=== PATIENT | female | born 1950 | race African-American/Black ===

== ENCOUNTER 2020-10-28 17:48 | Outpatient (REF) | payer MEDICARE, SELFPAY | END 2020-10-28 17:49 | disposition home or self-care (01) | LOC: HO.LAB 17:48 | PROVIDERS: PCP Nurse Practitioner Family; Visit Provider Internal Medicine | DX: Z20.822 Contact with and (suspected) exposure to COVID-19 (principal) | CPT/HCPCS: 36415; C9803; U0003 ==

== ENCOUNTER 2020-11-13 15:11 | Outpatient (REF) | payer MEDICARE, SELFPAY | END 2020-11-13 15:12 | disposition home or self-care (01) | LOC: HO.LAB 15:11 | PROVIDERS: Visit Provider Internal Medicine | DX: Z20.822 Contact with and (suspected) exposure to COVID-19 (principal) | CPT/HCPCS: 36415; C9803; U0003; U0005 ==

== ENCOUNTER 2021-01-29 10:26 | Outpatient (REF) | payer MEDICARE, SELFPAY | END 2021-01-29 10:27 | disposition home or self-care (01) | LOC: HO.MAMMO 10:26 | PROVIDERS: PCP Nurse Practitioner Family; Visit Provider Nurse Practitioner Family | DX: Z13.89 Encounter for screening for other disorder (principal) ==

== ENCOUNTER 2021-10-02 11:37 | Outpatient (REF) | payer MEDICARE, SELFPAY ==
--- NOTE | ~2021-10-02 | XR_ITS ---
EXAMINATION: XR CHEST CLINICAL INFORMATION: Abnormal weight loss COMPARISON: 06/14/2017 TECHNIQUE: 2 views of the chest were obtained. FINDINGS: The patient is rotated. Cardiomediastinal silhouette is stable. Suspect a calcified granuloma in the right lung apex measuring 5 mm, unchanged dating back to 2017. Some pleural-parenchymal scarring in the lung apices. No consolidation, pleural effusion or pneumothorax. XR/XR chest 2V IMPRESSION: No acute cardiopulmonary process.
== END 2021-10-02 11:38 | disposition home or self-care (01) ==
LOC: HO.XRAY 11:37
PROVIDERS: PCP Nurse Practitioner Family; Visit Provider Nurse Practitioner Family
DX: R63.4 Abnormal weight loss (principal)
CPT/HCPCS: 71046

== ENCOUNTER → 2021-12-26 14:35 | Outpatient (BNVA) | payer MEDICARE, SELFPAY | PROVIDERS: PCP Nurse Practitioner Family; Referring Provider Nurse Practitioner Family; Visit Provider Nurse Practitioner | DX: R63.4 Abnormal weight loss (principal); Z68.1 Body mass index [BMI] 19.9 or less, adult; K22.70 Barrett's esophagus without dysplasia; K21.9 Gastro-esophageal reflux disease without esophagitis | CPT/HCPCS: 99202 ==

== ENCOUNTER 2022-08-31 05:54 | Day surgery (SDC) | payer OTHER, SELFPAY ==
[2022-08-18 15:03] VITALS: BMI 17.6
--- NOTE | 2022-08-25 13:00 | HO.ANESPROP2 ---
Documented by User: Yana Richard NP 08/25/22 13:01 HPI - Anesthesia Eval Consult details Narrative: 71yo F for Bilateral Cataract Extraction IOL Insertion PCP cleared No previous cataract on record PMF Active Problems Active Problems: All Active Problems (Updated 08/20/22 @ 08:36 by Corina Colvin RN) High cholesterol (Acute) Graves's esophagus (Acute) GERD (gastroesophageal reflux disease) (Acute) Osteopenia (Acute) Weight loss (Acute) Dementia (Acute) Past Medical History Medical History (Updated 08/20/22 @ 08:36 by Corina Colvin RN) Barretts esophagus Dementia Depression Elevated cholesterol GERD (gastroesophageal reflux disease) History of COVID-19 IBS (irritable bowel syndrome) Osteopenia Surgical History Surgical History (Updated 07/23/22 @ 09:14 by Corina Colvin RN) H/O colonoscopy History of esophagogastroduodenoscopy (EGD) Social History Social History Are you a primary neurocritical care physician to a significant other at home: No Do you presently have visiting nurse or other home services: Yes ([employer]) Patient Tobacco Use Status: Never used Tobacco Use of substances other than those prescribed or required for medical reasons: No Have you been hit, kicked, punched, or otherwise hurt by someone within the past year? If so, by whom?: No Advance Directives: No (brother Harinder is primary contact-states has HCP & will bring DOS) Advance Directives Information Provided: Yes (as above noted) Advance Directives on File: No Recently lost weight without trying: No Eating poorly because of decreased appetite: No Nutrition Risks: No Nutritional Risk Poor oral hygiene: No Meds Allergies Allergy/AdvReac Type Severity Reaction Status Date / Time Penicillins Allergy Mild Rash Verified 08/20/22 08:38 Home Medications Medication Instructions Recorded Confirmed Last Taken Type acetaminophen 325 mg tablet 650 mg PO Q6H PRN Pain 12/26/21 08/20/22 Unknown History calcium carbonate 600 mg-vitamin 1 tab PO BID 12/26/21 08/20/22 Unknown History D3 10 mcg (400 unit) tablet cholecalciferol (vitamin D3) 50 50 mcg PO DAILY 12/26/21 Unknown History mcg (2,000 unit) tablet dicyclomine 20 mg tablet 20 mg PO QID 12/26/21 08/20/22 Unknown History donepezil 10 mg tablet 10 mg PO BEDTIME 12/26/21 08/20/22 Unknown History fluoxetine 20 mg capsule 40 mg PO QAM 12/26/21 08/20/22 Unknown History memantine 10 mg tablet 10 mg PO BID 12/26/21 08/20/22 Unknown History multivitamin (One Daily 1 tab PO DAILY 12/26/21 08/20/22 Unknown History Multivitamin tablet) omeprazole 20 mg capsule,delayed 20 mg PO DAILY 12/26/21 Unknown History release potassium citrate 10 mEq (1,080 10 meq PO DAILY 12/26/21 Unknown History mg) tablet,extended release quetiapine 300 mg tablet 300 mg PO BEDTIME 12/26/21 Unknown History atorvastatin 40 mg tablet 40 mg PO BEDTIME 08/18/22 08/20/22 Unknown History Exam Exam Date and Time: August 25, 2022 1300 Height,Weight and Vital Signs: Height 5 ft 4 in Weight 46.72 kg Assessment and Plan Assessment Anesthesia Assessment: Chart Reviewed Documented by User: Tahmina Rooney MD 08/31/22 09:06 [facility] Past Medical History Medical History (Updated 08/20/22 @ 08:36 by Corina Colvin RN) Barretts esophagus Dementia Depression Elevated cholesterol GERD (gastroesophageal reflux disease) History of COVID-19 IBS (irritable bowel syndrome) Osteopenia Family History Family history of problems with anesthesia: No Surgical History Surgical History (Updated 07/23/22 @ 09:14 by Corina Colvin RN) H/O colonoscopy History of esophagogastroduodenoscopy (EGD) History of Problems with Anesthesia: No Social History Social History Are you a primary neurocritical care physician to a significant other at home: No Do you presently have visiting nurse or other home services: Yes ([employer]) Patient Tobacco Use Status: Never used Tobacco Use of substances other than those prescribed or required for medical reasons: No Have you been hit, kicked, punched, or otherwise hurt by someone within the past year? If so, by whom?: No Advance Directives: No (brother Harinder is primary contact-states has HCP & will bring DOS) Advance Directives Information Provided: Yes (as above noted) Advance Directives on File: No Recently lost weight without trying: No Eating poorly because of decreased appetite: No Nutrition Risks: No Nutritional Risk Poor oral hygiene: No Meds Allergies Allergy/AdvReac Type Severity Reaction Status Date / Time Penicillins Allergy Mild Rash Verified 08/20/22 08:38 Home Medications Medication Instructions Recorded Confirmed Last Taken Type acetaminophen 325 mg tablet 650 mg PO Q6H PRN Pain 12/26/21 08/20/22 Unknown History calcium carbonate 600 mg-vitamin 1 tab PO BID 12/26/21 08/20/22 Unknown History D3 10 mcg (400 unit) tablet cholecalciferol (vitamin D3) 50 50 mcg PO DAILY 12/26/21 Unknown History mcg (2,000 unit) tablet dicyclomine 20 mg tablet 20 mg PO QID 12/26/21 08/20/22 Unknown History donepezil 10 mg tablet 10 mg PO BEDTIME 12/26/21 08/20/22 Unknown History fluoxetine 20 mg capsule 40 mg PO QAM 12/26/21 08/20/22 Unknown History memantine 10 mg tablet 10 mg PO BID 12/26/21 08/20/22 Unknown History multivitamin (One Daily 1 tab PO DAILY 12/26/21 08/20/22 Unknown History Multivitamin tablet) omeprazole 20 mg capsule,delayed 20 mg PO DAILY 12/26/21 Unknown History release potassium citrate 10 mEq (1,080 10 meq PO DAILY 12/26/21 Unknown History mg) tablet,extended release quetiapine 300 mg tablet 300 mg PO BEDTIME 12/26/21 Unknown History atorvastatin 40 mg tablet 40 mg PO BEDTIME 08/18/22 08/20/22 Unknown History Exam Airway Mallampati Class: II TM Dist: >3cm Neck ROM: Full Heart: rrr Lungs: cta Assessment and Plan Assessment Anesthesia Assessment: Anesthesia Plan Discussed and Chart Reviewed Final Anesthetic Review Family History of Problems with Anesthesia: No History of Problems with Anesthesia: No NPO: Yes ASA Class: III Final Preanesthetic Review: No Changes in Pt Med Stat, Meds/Allgs Chart Reviewed and Consent Obtained/Reviewed Patient Risk: Intermediate Procedure Risk: Intermediate Anesthetic Plan Anesthetic Plan: GA Disposition: Standard PACU
[2022-08-31 06:05] VITALS: BP 143/98; PULSE 79; RESP 20; TEMP 36.6; O2SAT 96
[2022-08-31] MEDS: Tetracaine HCl/PF 0.5% Oph Sol 4 ML DROPS 1 DROP EYE-RIGHT (06:33)
[2022-08-31] MEDS: Cyclopentolate 1 % Ophth Sol 2 ML DRPBTL 1 DROP EYE-RIGHT ×3 (06:33→06:46)
[2022-08-31] MEDS: Tropicamide 1 % Ophth Sol 3 ML BTL 1 DROP EYE-RIGHT ×3 (06:34→06:46)
[2022-08-31] MEDS: Ketorolac Tromethamine 0.5% Op 5 ML DROPS 1 DROP EYE-RIGHT ×3 (06:35→06:46)
[2022-08-31] MEDS: Phenylephrine HCL 2.5% Oph SoL 2 ML BOTTLE 1 DROP EYE-RIGHT ×3 (06:35→06:46)
--- NOTE | 2022-08-31 06:46 | PC.NURSE ---
attempted iv acess x2 unable pt confused family at bedside fighting and combative when attempting iv anesthesia made aware
--- NOTE | 2022-08-31 07:02 | PC.NURSE ---
d/c went over with hcp and interpretor verbalized understanding
[2022-08-31] MEDS: Lactated Ringers 500 ML 50 ML IV (07:16)
[2022-08-31] MEDS: Tetracaine HCl/PF 0.5% Oph Sol 4 ML DROPS 1 DROP EYE-LEFT (07:40)
[2022-08-31] MEDS: Ketorolac Tromethamine 0.5% Op 5 ML DROPS 1 DROP EYE-LEFT ×3 (07:41→07:47)
[2022-08-31] MEDS: Phenylephrine HCL 2.5% Oph SoL 2 ML BOTTLE 1 DROP EYE-LEFT ×3 (07:42→07:46)
[2022-08-31] MEDS: Tropicamide 1 % Ophth Sol 3 ML BTL 1 DROP EYE-LEFT ×3 (07:42→07:47)
[2022-08-31] MEDS: Cyclopentolate 1 % Ophth Sol 2 ML DRPBTL 1 DROP EYE-LEFT ×3 (07:43→07:46)
--- NOTE | 2022-08-31 10:58 | HO.PNOPHT ---
Ophthalmology Procedure Procedure Date of Service: 08/31/22 Ophthalmology Viscoelastic: Healteodora Duet Dual Pack Pro Ophthalmology Lenses: TECNIS [id number] (18) Procedure Notes: PREOPERATIVE DIAGNOSIS: Decreased visual acuity left eye secondary to cataract with Exam under Anesthesia POSTOPERATIVE DIAGNOSIS: Same PROCEDURE:Right and Left cataract extraction with intraocular lens insertion SURGEON: Rupert Woodward M.D. ANESTHESIA: Topical/MAC ESTIMATED BLOOD LOSS: None COMPLICATIONS: None After obtaining informed consent, the patient was brought to the operation room suite and placed in the supine position. After adequate sedation per anesthesia, topical drops of Tetracaine were given to the left eye. The eye was then prepped and draped in the usual sterile fashion. The operating room microscope was then positioned over the operative eye and a lid speculum placed. A paracentesis was created. Viscoelastic was then instilled into the anterior chamber. A three plane incision was then created temporally, utilizing a 2.85 mm keratome. Capsulotomy forceps were then utilized to create a circular tear capsulotomy. Hydrodissection and hydrodelineation were carried out until adequate mobilization of the nucleus occurred. Phacoemulsification was then utilized to remove the dense central nucleus followed by removal of the cortical material utilizing the automated aspiration irrigation unit. Viscoat elastic was instilled into the posterior capsular bag followed by placement of a posterior chamber intraocular lens without difficulty. The residual Viscoat elastic was then removed utilizing the automated IA machine. The wound was check and found to be watertight. The patient tolerated the procedure well and the lid speculum was removed. Intracameral injection of Vigamox 0.1 mL followed by a subtenon injection of Kenalog-40 0.2 mL were administered. The patient will be seen in the a.m.
--- NOTE | 2022-08-31 11:00 | HO.PNOPHT ---
Ophthalmology Procedure Procedure Date of Service: 08/31/22 Ophthalmology Viscoelastic: Healteodora Duet Dual Pack Pro Ophthalmology Lenses: TECNIS [id number] (18) Procedure Notes: PREOPERATIVE DIAGNOSIS: Decreased visual acuity right eye secondary to cataract with exam under Anesthesia POSTOPERATIVE DIAGNOSIS: Same PROCEDURE: Left andRight cataract extraction with intraocular lens insertion SURGEON: Rupert Woodward M.D. ANESTHESIA: Topical/MAC ESTIMATED BLOOD LOSS: None COMPLICATIONS: None After obtaining informed consent, the patient was brought to the operating room suite and placed in the supine position. After adequate sedation per anesthesia, topical drops of Tetracaine were given to the right eye. The eye was then prepped and draped in the usual sterile fashion. The operating room microscope was then positioned over the operative eye and a lid speculum placed. A paracentesis was created. Visionblue was instilled under an air bubbleViscoelastic was then instilled into the anterior chamber. A three plane incision was then created temporally, utilizing a 2.85 mm keratome. Capsulotomy forceps were then utilized to create a circular tear capsulotomy. Hydrodissection and hydrodelineation were carried out until adequate mobilization of the nucleus occurred. Phacoemulsification was then utilized to remove the dense central nucleus followed by removal of the cortical material utilizing the automated aspiration irrigation unit. Viscoelastic was instilled into the posterior capsular bag followed by placement of a posterior chamber intraocular lens without difficulty. The residual Viscoelastic was then removed utilizing the automated IA machine. The wound was checked and found to be watertight. The patient tolerated the procedure well and the lid speculum was removed. Intracameral injection of Vigamox 0.1 mL followed by a subtenon injection of Kenalog-40 0.2 mL were administered. The patient will be seen in the a.m.
[2022-08-31 11:08] VITALS: BP 132/79; PULSE 63; RESP 16; TEMP 36.1; O2SAT 100
[2022-08-31 11:13] VITALS: BP 131/90; PULSE 77; RESP 16; O2SAT 96
[2022-08-31 11:18] VITALS: BP 126/76; PULSE 55; RESP 16; O2SAT 99
[2022-08-31 11:23] VITALS: BP 124/64; PULSE 72; RESP 18; O2SAT 100
[2022-08-31 11:38] VITALS: BP 114/56; PULSE 67; RESP 16; TEMP 36.6; O2SAT 100
== END 2022-08-31 11:40 ==
LOC: HO.SSS 05:54
PROVIDERS: PCP Internal Medicine Geriatric Medicine; Visit Provider Ophthalmology
PROC: (CPT 66985; principal; 2022-08-31 08:00)
DX: H25.13 Age-related nuclear cataract, bilateral (principal); F03.90 Unspecified dementia, unspecified severity, without behavioral disturbance, psychotic disturbance, mood disturbance, and anxiety; K21.9 Gastro-esophageal reflux disease without esophagitis; Z79.899 Other long term (current) drug therapy
CPT/HCPCS: 66984; J3010; J3300; J7999; V2632

== ENCOUNTER 2022-12-23 18:15 | Observation (INO) | payer OTHER, SELFPAY ==
--- NOTE | ~2022-12-23 | CT_ITS ---
EXAMINATION: CTA CHEST CT ABDOMEN AND PELVIS WITH CONTRAST CLINICAL INFORMATION: DVT. Fevers. COMPARISON: CT abdomen pelvis 03/14/2019. Chest x-ray 12/23/2022 TECHNIQUE: A noncontrast localizer was performed, followed by the administration of 65 mL Omnipaque [address] of the chest was then performed. Coronal and sagittal reformatted and 3-D technique MIP images of the chest were completed at the CT scanner and reviewed on the PACS workstation. No adverse effects were reported. Images were then performed through the abdomen and pelvis. Coronal and sagittal reformatted images performed at CT scanner by technologist. [This CT examination was performed using dose optimization techniques as appropriate, variously including the following: *Automated exposure control *Adjustment of mA and/or kV according to patient size (this includes techniques or standardized protocols for targeted exams where dose is matched to indication/reason for exam; i.e. extremities or head) *Use of iterative reconstruction technique] DLP: 578 mGy-cm. FINDINGS: CTA CHEST Vascular: Bilateral pulmonary emboli in the subsegmental pulmonary arteries with both lower lobes. Mediastinum: No mediastinal mass or significant lymphadenopathy. Heart size is normal. No pericardial effusion. CORONARY ARTERIES: Volume of coronary calcification:None Lungs: The lungs are clear. No nodule or infiltrate. Central bronchial airways open. Fluid: There is no pericardial effusion. There is no pleural effusion. Axilla: No significant lymphadenopathy. CT SCAN ABDOMEN/PELVIS: Liver, Gallbladder and Biliary Tree: The liver is normal in size, shape, and attenuation. No focal hepatic lesion or biliary ductal dilatation is present. The gallbladder is unremarkable with no evidence of radiopaque gallstones, gallbladder wall thickening, or obvious pericholecystic inflammatory changes. Pancreas: Unremarkable. Spleen: Unremarkable. Adrenal Glands: Unremarkable. Kidneys and Ureters: The kidneys are normal in size, shape, and attenuation. No hydronephrosis, hydroureter, or calculi seen. No perinephric stranding. Bladder: Unremarkable. Gastrointestinal Tract: No acute abnormality. There is no bowel wall thickening /edema. There is no bowel obstruction. There is a moderate to large volume of stool in the colon. The appendix is nonvisualized . The small bowel loops are unremarkable. The stomach is normal. There is no hiatal hernia. Abdominal Wall: No significant hernia is appreciated. Lymph Nodes: Normal. Vascular: Unremarkable. Pelvic Viscera: Unremarkable. Osseous Structures: Unremarkable. CT/CT abdomen pelvis w IV con IMPRESSION: 1. Bilateral pulmonary emboli. 2. No acute abnormality the abdomen or the pelvis. There is a moderate to large-volume of stool in the colon. There is no acute abnormality of the bowel. This critical result was discussed with Livier Carlos NP on 12/24/2022, 12:50 AM and it was ascertained that the content and urgency of the report was understood at the time of direct communication.
--- NOTE | ~2022-12-23 | US_ITS ---
EXAMINATION: US VENOUS ULTRASOUND WITH DOPPLER LOWER EXTREMITY, LEFT CLINICAL INFORMATION: Pain and swelling. COMPARISON: None available. TECHNIQUE: Ultrasound of the deep veins is performed from the hip to the calf with compression sonography and color and pulse Doppler assessment. Spectral analysis with color-flow imaging is performed. FINDINGS: There is acute thrombus with no flow visualized from left external iliac vein to the left popliteal vein consistent with acute DVT. Some flow visualized within the posterior tibial vein. There is no significant popliteal fossa cyst. If the patient's symptoms persist, followup ultrasound in 5 days 7 days might be of value to exclude proximal propagation from a non-visualized calf vein. US/US venous duplex LE IMPRESSION: Acute DVT left lower extremity. Results were notified to Livier Roa NP by automotive diagnostic technician
--- NOTE | ~2022-12-23 | XR_ITS ---
EXAMINATION: XR CHEST CLINICAL INFORMATION: Pain COMPARISON: 10/02/2021 TECHNIQUE: Frontal view of the chest was obtained. FINDINGS: The lungs are well expanded. There is no focal consolidation, edema, or effusion. No pneumothorax. Calcified granulomata likely present, unchanged. The cardiomediastinal silhouette is within normal limits. No acute osseous abnormality. XR/XR chest 1V IMPRESSION: No acute pulmonary disease.
[2022-12-23 18:54] VITALS: BP 105/73; PULSE 101; RESP 18; TEMP 38.4; O2SAT 100; BMI 25.4
--- NOTE | 2022-12-23 19:00 | ED.GENADULT ---
HPI - General Adult General Chief complaint: General Medical <Luis Manuel Blanco - Last Filed: 12/23/22 19:01> Stated complaint: Swollen left leg <Luis Manuel Blanco - Last Filed: 12/23/22 19:01> Time Seen by Provider: 12/23/22 20:28 <Luis Manuel Blanco - Last Filed: 12/23/22 19:01> Source: patient and family <Livier Carlos NP - Last Filed: 12/24/22 01:26> Mode of arrival: wheelchair <Livier Carlos NP - Last Filed: 12/24/22 01:26> Limitations: altered mental status (Dementia per baseline) <Livier Carlos NP - Last Filed: 12/24/22 01:26> History of Present Illness HPI narrative: 72-year-old female presents with left lower extremity swelling. Patient has dementia per baseline and is unable to make her needs known. <Livier Carlos NP - Last Filed: 12/24/22 01:26> Onset (ago): day(s) (1) <Livier Carlos NP - Last Filed: 12/24/22 01:26> Location: left and lower extremity <Livier Carlos NP - Last Filed: 12/24/22 01:26> Related Data Home medications: Home Medications Medication Instructions Recorded Confirmed acetaminophen 325 mg tablet 650 mg PO Q6H PRN Pain 12/26/21 08/20/22 calcium carbonate 600 mg-vitamin 1 tab PO BID 12/26/21 08/20/22 D3 10 mcg (400 unit) tablet cholecalciferol (vitamin D3) 50 50 mcg PO DAILY 12/26/21 mcg (2,000 unit) tablet dicyclomine 20 mg tablet 20 mg PO QID 12/26/21 08/20/22 donepezil 10 mg tablet 10 mg PO BEDTIME 12/26/21 08/20/22 fluoxetine 20 mg capsule 40 mg PO QAM 12/26/21 08/20/22 memantine 10 mg tablet 10 mg PO BID 12/26/21 08/20/22 multivitamin (One Daily 1 tab PO DAILY 12/26/21 08/20/22 Multivitamin tablet) omeprazole 20 mg capsule,delayed 20 mg PO DAILY 12/26/21 release potassium citrate 10 mEq (1,080 10 meq PO DAILY 12/26/21 mg) tablet,extended release quetiapine 300 mg tablet 300 mg PO BEDTIME 12/26/21 atorvastatin 40 mg tablet 40 mg PO BEDTIME 08/18/22 08/20/22 <Luis Manuel Blanco - Last Filed: 12/23/22 19:01> Allergies/adverse reactions: Allergies Allergy/AdvReac Type Severity Reaction Status Date / Time Penicillins Allergy Mild Rash Verified 08/20/22 08:38 <Luis Manuel Blanco - Last Filed: 12/23/22 19:01> Review of Systems Review of Systems: Yes Unobtainable due to mental status (Dementia per baseline) <Livier Carlos NP - Last Filed: 12/24/22 01:26> [facility] Past Medical History Attestation statement: The following information was validated with the patient. <Livier Carlos NP - Last Filed: 12/24/22 01:26> Source: old records reviewed <Livier Carlos NP - Last Filed: 12/24/22 01:26> Medical History: Medical History Barretts esophagus Dementia Depression Elevated cholesterol GERD (gastroesophageal reflux disease) History of COVID-19 IBS (irritable bowel syndrome) Osteopenia <Luis Manuel Blanco - Last Filed: 12/23/22 19:01> Surgical History: Surgical History H/O colonoscopy History of esophagogastroduodenoscopy (EGD) <Luis Manuel Blanco - Last Filed: 12/23/22 19:01> Social History Social History: Social History Are you a primary careers counsellor to a significant other at home: No Do you presently have visiting nurse or other home services: 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) Patient Tobacco Use Status: Never used Tobacco Advance Directives: No Advance Directives Information Provided: Yes <Luis Manuel Blanco - Last Filed: 12/23/22 19:01> Physical Exam ED Vital Signs: Vital Signs - 24 hr 12/23/22 18:54 12/23/22 22:04 12/23/22 23:39 Temperature 101.1 F H 98.6 F 98.6 F Pulse Rate 101 H 86 77 Respiratory Rate 18 20 16 Blood Pressure 105/73 116/75 109/60 Pulse Oximetry 100 96 Oxygen Delivery Method Room Air Room Air BMI result Body Mass Index 25.4 <Luis Manuel Blanco - Last Filed: 12/23/22 19:01> Vital Signs - 24 hr 12/23/22 18:54 12/23/22 22:04 12/23/22 23:39 Temperature 101.1 F H 98.6 F 98.6 F Pulse Rate 101 H 86 77 Respiratory Rate 18 20 16 Blood Pressure 105/73 116/75 109/60 Pulse Oximetry 100 96 Oxygen Delivery Method Room Air Room Air BMI result Body Mass Index 25.4 <Livier Carlos NP - Last Filed: 12/24/22 01:26> Appearance: Alert. Unable to make needs known. Unable to follow directions Eyes: Pupils equal, round and reactive to light. Neck: Normal inspection. Neck supple. CVS: Tachycardic heart rate and rhythm. Pulses normal. Respiratory: No respiratory distress. Breath sounds normal however unable to take a full breath due to patient's inability to follow directions. Abdomen: Soft and nontender. Skin: Skin warm and dry. Normal skin color. Normal skin turgor. Extremities: Left lower extremity swelling. Moves all extremities against resistance Neuro: No motor deficit. No sensory deficit. No significant cranial nerve deficit <Livier Carlos NP - Last Filed: 12/24/22 01:26> Course Course Course Narrative: 72-year-old female past medical history significant for advanced dementia, GERD, high cholesterol, osteopenia presents for evaluation of left leg pain and swelling. She was sent by urgent care to rule out DVT. The patient has noted a temperature of 101.4?. Her left leg is warm to the touch, edematous. I ordered labs including blood cultures and a lactate given her temperature. Also order an ultrasound of the left lower extremity to rule out DVT. Chest x-ray, UA and viral panel were also ordered. <Luis Manuel Blanco - Last Filed: 12/23/22 19:01> 72-year-old female past medical history significant for advanced dementia, GERD, high cholesterol, osteopenia presents for evaluation of left leg pain and swelling. She was sent by urgent care to rule out DVT. The patient has noted a temperature of 101.4?. Her left leg is warm to the touch, edematous. I ordered labs including blood cultures and a lactate given her temperature. Also order an ultrasound of the left lower extremity to rule out DVT. Chest x-ray, UA and viral panel were also ordered. 21:40 72-year-old female presents for 1 day of left lower extremity swelling. Patient's niece who is her net software architect, noted that the leg was swollen. They presented to urgent care who then referred her to the emergency department. Provider in triage ordered labs and DVT study which is positive for thrombus. Patient does have an elevated heart rate of 100, and an elevated temperature of 101 degrees. At this time I feel that PE study is warranted, and will hold off anticoagulation until that study returns. I did discuss this case with the hospitalist, if this patient does have pulmonary embolisms, this patient will be admitted. I do not feel that this patient is septic at this time. Patient is pleasant, non combative, does not answer any questions, and cannot follow directions. Patient is well cared for, skin is supple, no wounds or lesions noted. 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 Will start Lovenox at this time. Patient will be admitted. I did discuss all findings with patient's family, who agrees with the plan of care. <Livier Carlos NP - Last Filed: 12/24/22 01:26> Consultations Consultation #1: Hospitalist <Livier Carlos NP - Last Filed: 12/24/22 01:26> Medications Administered Discontinued Medications Generic Name Dose Route Start Last Admin Trade Name Freq PRN Reason Stop Dose Admin Enoxaparin Sodium 60 mg 12/24/22 00:52 12/24/22 01:05 Enoxaparin Sodium 60 Mg/0.6 Ml Syringe 1 mg/kg (60 mg) 12/24/22 00:53 60 mg SUBCUT Administration ONCE ONE Sodium Chloride 1,000 mls @ 999 mls/hr 12/23/22 22:00 12/23/22 22:03 Ns IVCONT 12/23/22 23:00 999 mls/hr .Q1H1M FAIZAN Administration Lorazepam 1 mg 12/23/22 23:30 12/23/22 23:38 Lorazepam 2 Mg/Ml Vial IVPUSH 12/23/22 23:31 1 mg ONCE ONE Administration <Luis Manuel Blanco - Last Filed: 12/23/22 19:01> Medications Administered Discontinued Medications Generic Name Dose Route Start Last Admin Trade Name Jose J PRN Reason Stop Dose Admin Enoxaparin Sodium 60 mg 12/24/22 00:52 12/24/22 01:05 Enoxaparin Sodium 60 Mg/0.6 Ml Syringe 1 mg/kg (60 mg) 12/24/22 00:53 60 mg SUBCUT Administration ONCE ONE Sodium Chloride 1,000 mls @ 999 mls/hr 12/23/22 22:00 12/23/22 22:03 Ns IVCONT 12/23/22 23:00 999 mls/hr .Q1H1M FAIZAN Administration Lorazepam 1 mg 12/23/22 23:30 12/23/22 23:38 Lorazepam 2 Mg/Ml Vial IVPUSH 12/23/22 23:31 1 mg ONCE ONE Administration <Livier Carlos NP - Last Filed: 12/24/22 01:26> Medical Decision Making Differential Diagnosis Differential Diagnoses: The differential diagnosis associated with the presentation includes <Livier Carlos NP - Last Filed: 12/24/22 01:26> DVT, PE, malignancy <Livier Carlos NP - Last Filed: 12/24/22 01:26> Admission/Observation Consideration of admission/observation: Escalation of care including admission/observation considered <Livier Carlos NP - Last Filed: 12/24/22 01:26> Patient will require admission of PE study is positive <Livier Carlos NP - Last Filed: 12/24/22 01:26> Consult Healthcare Provider Management of the patient was discussed with: Hospitalist <Livier Carlos NP - Last Filed: 12/24/22 01:26> Lab Data MDM Lab Attestation statement: I reviewed the patient's lab results. <Livier Carlos NP - Last Filed: 12/24/22 01:26> Result Diagrams: 12/23/22 20:50 12/23/22 20:50 <Luis Manuel Blanco - Last Filed: 12/23/22 19:01> Labs: Lab Results 12/23/22 12/23/22 12/23/22 Range/Units 20:50 20:50 20:50 WBC 9.9 (4.8-10.8) X10*3/uL RBC 3.73 L (4.20-5.50) X10*6/uL Hgb 11.8 L (12.0-16.0) g/dl Hct 35.1 L (37.0-47.0) % MCV 94.1 (80.0-98.0) fL MCH 31.6 (27.0-33.0) pg MCHC 33.6 (31.0-35.0) g/dl RDW 11.7 (11.0-16.0) % Plt Count 145 L (160-400) X10*3/uL MPV 9.7 (9.4-12.3) fL Immature Gran % (Auto) 0.8 H (0.0-0.4) % Neut % (Auto) 77.2 H (45-73) % Lymph % (Auto) 12.2 L (20-40) % Sunflower % (Auto) 9.3 (2-11) % Eos % (Auto) 0.3 (0-4) % Baso % (Auto) 0.2 (0-2) % Lymph # (Auto) 1.2 (1.2-4.9) X10*3/uL Sunflower # (Auto) 0.9 (0.1-1.2) X10*3/uL Eos # (Auto) 0.0 (0.0-0.4) X10*3/uL Baso # (Auto) 0.0 (0.0-0.2) X10*3/uL Abs Immat Gran (auto) 0.08 H (0.00-0.03) X10*3/uL Absolute Neuts (auto) 7.7 (2.0-8.3) x10*3/uL Absolute Nucleated RBC 0.000 (0.0-0.012) X10*3/uL Nucleated RBC % (auto) 0.0 (0.0-0.2) /100WBC PT (10.0-13.1) SEC INR (0.9-1.1) APTT (26.0-36.4) SEC Sodium 137 (135-145) mmol/L Potassium 3.9 (3.3-5.1) mmol/L Chloride 98 (96-108) mmol/L Carbon Dioxide 30 H (22-29) mmol/L Anion Gap 13 (12-20) BUN 21 H (9-16) mg/dL Creatinine 0.68 (0.5-1.4) mg/dL Estim Creat Clear Calc 59.2 Estimated GFR > 60 Random Glucose 128 H (60-115) mg/dL Lactic Acid 1.1 (0.5-2.0) mmol/L Calcium 8.6 (8.4-10.2) mg/dL Magnesium 2.2 (1.6-2.6) mg/dL Total Bilirubin 0.3 (0.0-1.0) mg/dL AST 71 H (5-31) U/L ALT 80 H (0-31) U/L Alkaline Phosphatase 98 (39-117) U/L Total Protein 6.6 (6.5-8.0) g/dL Albumin 3.7 (3.5-5.0) g/dL Lipase 18 (8-78) U/L Influenza Type A (PCR) (Negative) Influenza Type B (PCR) (Negative) RSV RNA Qual (PCR) (Negative) SARS-CoV-2 RNA (RT-PCR) (Negative) 12/23/22 12/23/22 Range/Units 20:50 20:50 WBC (4.8-10.8) X10*3/uL RBC (4.20-5.50) X10*6/uL Hgb (12.0-16.0) g/dl Hct (37.0-47.0) % MCV (80.0-98.0) fL MCH (27.0-33.0) pg MCHC (31.0-35.0) g/dl RDW (11.0-16.0) % Plt Count (160-400) X10*3/uL MPV (9.4-12.3) fL Immature Gran % (Auto) (0.0-0.4) % Neut % (Auto) (45-73) % Lymph % (Auto) (20-40) % Sunflower % (Auto) (2-11) % Eos % (Auto) (0-4) % Baso % (Auto) (0-2) % Lymph # (Auto) (1.2-4.9) X10*3/uL Sunflower # (Auto) (0.1-1.2) X10*3/uL Eos # (Auto) (0.0-0.4) X10*3/uL Baso # (Auto) (0.0-0.2) X10*3/uL Abs Immat Gran (auto) (0.00-0.03) X10*3/uL Absolute Neuts (auto) (2.0-8.3) x10*3/uL Absolute Nucleated RBC (0.0-0.012) X10*3/uL Nucleated RBC % (auto) (0.0-0.2) /100WBC PT 12.1 (10.0-13.1) SEC INR 1.1 (0.9-1.1) APTT 30.4 (26.0-36.4) SEC Sodium (135-145) mmol/L Potassium (3.3-5.1) mmol/L Chloride (96-108) mmol/L Carbon Dioxide (22-29) mmol/L Anion Gap (12-20) BUN (9-16) mg/dL Creatinine (0.5-1.4) mg/dL Estim Creat Clear Calc Estimated GFR Random Glucose (60-115) mg/dL Lactic Acid (0.5-2.0) mmol/L Calcium (8.4-10.2) mg/dL Magnesium (1.6-2.6) mg/dL Total Bilirubin (0.0-1.0) mg/dL AST (5-31) U/L ALT (0-31) U/L Alkaline Phosphatase (39-117) U/L Total Protein (6.5-8.0) g/dL Albumin (3.5-5.0) g/dL Lipase (8-78) U/L Influenza Type A (PCR) NEGATIVE (Negative) Influenza Type B (PCR) NEGATIVE (Negative) RSV RNA Qual (PCR) NEGATIVE (Negative) SARS-CoV-2 RNA (RT-PCR) NEGATIVE (Negative) <Luis Manuel Blanco - Last Filed: 12/23/22 19:01> Lab Results 12/23/22 12/23/22 12/23/22 Range/Units 20:50 20:50 20:50 WBC 9.9 (4.8-10.8) X10*3/uL RBC 3.73 L (4.20-5.50) X10*6/uL Hgb 11.8 L (12.0-16.0) g/dl Hct 35.1 L (37.0-47.0) % MCV 94.1 (80.0-98.0) fL MCH 31.6 (27.0-33.0) pg MCHC 33.6 (31.0-35.0) g/dl RDW 11.7 (11.0-16.0) % Plt Count 145 L (160-400) X10*3/uL MPV 9.7 (9.4-12.3) fL Immature Gran % (Auto) 0.8 H (0.0-0.4) % Neut % (Auto) 77.2 H (45-73) % Lymph % (Auto) 12.2 L (20-40) % Sunflower % (Auto) 9.3 (2-11) % Eos % (Auto) 0.3 (0-4) % Baso % (Auto) 0.2 (0-2) % Lymph # (Auto) 1.2 (1.2-4.9) X10*3/uL Sunflower # (Auto) 0.9 (0.1-1.2) X10*3/uL Eos # (Auto) 0.0 (0.0-0.4) X10*3/uL Baso # (Auto) 0.0 (0.0-0.2) X10*3/uL Abs Immat Gran (auto) 0.08 H (0.00-0.03) X10*3/uL Absolute Neuts (auto) 7.7 (2.0-8.3) x10*3/uL Absolute Nucleated RBC 0.000 (0.0-0.012) X10*3/uL Nucleated RBC % (auto) 0.0 (0.0-0.2) /100WBC PT (10.0-13.1) SEC INR (0.9-1.1) APTT (26.0-36.4) SEC Sodium 137 (135-145) mmol/L Potassium 3.9 (3.3-5.1) mmol/L Chloride 98 (96-108) mmol/L Carbon Dioxide 30 H (22-29) mmol/L Anion Gap 13 (12-20) BUN 21 H (9-16) mg/dL Creatinine 0.68 (0.5-1.4) mg/dL Estim Creat Clear Calc 59.2 Estimated GFR > 60 Random Glucose 128 H (60-115) mg/dL Lactic Acid 1.1 (0.5-2.0) mmol/L Calcium 8.6 (8.4-10.2) mg/dL Magnesium 2.2 (1.6-2.6) mg/dL Total Bilirubin 0.3 (0.0-1.0) mg/dL AST 71 H (5-31) U/L ALT 80 H (0-31) U/L Alkaline Phosphatase 98 (39-117) U/L Total Protein 6.6 (6.5-8.0) g/dL Albumin 3.7 (3.5-5.0) g/dL Lipase 18 (8-78) U/L Influenza Type A (PCR) (Negative) Influenza Type B (PCR) (Negative) RSV RNA Qual (PCR) (Negative) SARS-CoV-2 RNA (RT-PCR) (Negative) 12/23/22 12/23/22 Range/Units 20:50 20:50 WBC (4.8-10.8) X10*3/uL RBC (4.20-5.50) X10*6/uL Hgb (12.0-16.0) g/dl Hct (37.0-47.0) % MCV (80.0-98.0) fL MCH (27.0-33.0) pg MCHC (31.0-35.0) g/dl RDW (11.0-16.0) % Plt Count (160-400) X10*3/uL MPV (9.4-12.3) fL Immature Gran % (Auto) (0.0-0.4) % Neut % (Auto) (45-73) % Lymph % (Auto) (20-40) % Sunflower % (Auto) (2-11) % Eos % (Auto) (0-4) % Baso % (Auto) (0-2) % Lymph # (Auto) (1.2-4.9) X10*3/uL Sunflower # (Auto) (0.1-1.2) X10*3/uL Eos # (Auto) (0.0-0.4) X10*3/uL Baso # (Auto) (0.0-0.2) X10*3/uL Abs Immat Gran (auto) (0.00-0.03) X10*3/uL Absolute Neuts (auto) (2.0-8.3) x10*3/uL Absolute Nucleated RBC (0.0-0.012) X10*3/uL Nucleated RBC % (auto) (0.0-0.2) /100WBC PT 12.1 (10.0-13.1) SEC INR 1.1 (0.9-1.1) APTT 30.4 (26.0-36.4) SEC Sodium (135-145) mmol/L Potassium (3.3-5.1) mmol/L Chloride (96-108) mmol/L Carbon Dioxide (22-29) mmol/L Anion Gap (12-20) BUN (9-16) mg/dL Creatinine (0.5-1.4) mg/dL Estim Creat Clear Calc Estimated GFR Random Glucose (60-115) mg/dL Lactic Acid (0.5-2.0) mmol/L Calcium (8.4-10.2) mg/dL Magnesium (1.6-2.6) mg/dL Total Bilirubin (0.0-1.0) mg/dL AST (5-31) U/L ALT (0-31) U/L Alkaline Phosphatase (39-117) U/L Total Protein (6.5-8.0) g/dL Albumin (3.5-5.0) g/dL Lipase (8-78) U/L Influenza Type A (PCR) NEGATIVE (Negative) Influenza Type B (PCR) NEGATIVE (Negative) RSV RNA Qual (PCR) NEGATIVE (Negative) SARS-CoV-2 RNA (RT-PCR) NEGATIVE (Negative) <Livier Carlos NP - Last Filed: 12/24/22 01:26> Independent Interpretation I performed an independent interpretation of an: Plain X-Ray, Ultrasound and CT Scan <Livier Carlos NP - Last Filed: 12/24/22 01:26> Radiology Impression Discussion of test interpretation with radiology: I have reviewed the radiologist's reading. <Livier Carlos NP - Last Filed: 12/24/22 01:26> Radiologist Impression: EXAMINATION: CTA CHEST CT ABDOMEN AND PELVIS WITH CONTRAST CLINICAL INFORMATION: DVT. Fevers.? COMPARISON: CT abdomen pelvis 03/14/2019. Chest x-ray 12/23/2022? TECHNIQUE: A noncontrast localizer was performed, followed by the administration of 65 mL Omnipaque [address] of the chest was then performed. Coronal and sagittal reformatted and 3-D technique MIP images of the chest were completed at the CT scanner and reviewed on the PACS workstation. No adverse effects were reported. Images were then performed through the abdomen and pelvis. Coronal and sagittal reformatted images performed at CT scanner by technologist. [This CT examination was performed using dose optimization techniques as appropriate, variously including the following: *Automated exposure control *Adjustment of mA and/or kV according to patient size (this includes techniques or standardized protocols for targeted exams where dose is matched to indication/reason for exam; i.e. extremities or head) *Use of iterative reconstruction technique] DLP: 578 mGy-cm. FINDINGS: CTA CHEST Vascular: Bilateral pulmonary emboli in the subsegmental pulmonary arteries with both lower lobes. Mediastinum: No mediastinal mass or significant lymphadenopathy. Heart size is normal. No pericardial effusion. CORONARY ARTERIES: Volume of coronary calcification:None Lungs: The lungs are clear. No nodule or infiltrate. Central bronchial airways open. Fluid: There is no pericardial effusion. There is no pleural effusion. Axilla: No significant lymphadenopathy. CT SCAN ABDOMEN/PELVIS: Liver, Gallbladder and Biliary Tree: The liver is normal in size, shape, and attenuation. No focal hepatic lesion or biliary ductal dilatation is present. The gallbladder is unremarkable with no evidence of radiopaque gallstones, gallbladder wall thickening, or obvious pericholecystic inflammatory changes.? Pancreas: Unremarkable.? Spleen: Unremarkable.? Adrenal Glands: Unremarkable.? Kidneys and Ureters: The kidneys are normal in size, shape, and attenuation. No hydronephrosis, hydroureter, or calculi seen. No perinephric stranding. ? Bladder: Unremarkable.? Gastrointestinal Tract: No acute abnormality. There is no bowel wall thickening /edema. There is no bowel obstruction. There is a moderate to large volume of stool in the colon. The appendix is nonvisualized . The small bowel loops are unremarkable. The stomach is normal. There is no hiatal hernia.? Abdominal Wall: No significant hernia is appreciated.? Lymph Nodes: Normal. Vascular: Unremarkable. Pelvic Viscera: Unremarkable. Osseous Structures: Unremarkable.? CT/CT abdomen pelvis w IV con IMPRESSION: 1.? Bilateral pulmonary emboli. 2.? No acute abnormality the abdomen or the pelvis. There is a moderate to large-volume of stool in the colon. There is no acute abnormality of the bowel. ? This critical result was discussed with Livier Carlos NP on 12/24/2022, 12:50 AM and it was ascertained that the content and urgency of the report was understood at the time of direct communication. EXAMINATION: XR CHEST CLINICAL INFORMATION: Pain COMPARISON: 10/02/2021 TECHNIQUE: Frontal view of the chest was obtained. FINDINGS: The lungs are well expanded. There is no focal consolidation, edema, or effusion. No pneumothorax. Calcified granulomata likely present, unchanged. The cardiomediastinal silhouette is within normal limits. No acute osseous abnormality. XR/XR chest 1V IMPRESSION: No acute pulmonary disease. ? EXAMINATION:? US VENOUS ULTRASOUND WITH DOPPLER LOWER EXTREMITY, LEFT CLINICAL INFORMATION:? Pain and swelling. COMPARISON:? None available. TECHNIQUE: Ultrasound of the deep veins is performed from the hip to the calf with compression sonography and color and pulse Doppler assessment. Spectral analysis with color-flow imaging is performed. FINDINGS: There is acute thrombus with no flow visualized from left external iliac vein to the left popliteal vein consistent with acute DVT. Some flow visualized within the posterior tibial vein. ? There is no significant popliteal fossa cyst. If the patient's symptoms persist, followup ultrasound in 5 days 7 days might be of value to exclude proximal propagation from a non-visualized calf vein. US/US venous duplex LE LT IMPRESSION: Acute DVT left lower extremity. ? Results were notified to Livier Roa NP by identification technician <Livier Carlos NP - Last Filed: 12/24/22 01:26> Independent Historian Clinical information obtained from an independent historian. History obtained from or confirmed by: Other (Family) <Livier Carlos NP - Last Filed: 12/24/22 01:26> External Record Review External record reviewed: Outpatient record, Prior outpatient labs and Prior outpatient radiology <Livier Carlos NP - Last Filed: 12/24/22 01:26> Prescription Management I considered prescription management with: Other (Anticoagulation) <Livier Carlos NP - Last Filed: 12/24/22 01:26> Chronic Conditions Patient?s care impacted by: Other (Dementia) <Livier Carlos NP - Last Filed: 12/24/22 01:26> Social Determinants Patient?s care significantly limited by Social Determinants of Health including: Other Social Determinant of Health <Livier Carlos NP - Last Filed: 12/24/22 01:26> Scores Wells DVT Entire leg swollen: 1 <Livier Carlos NP - Last Filed: 12/24/22 01:26> Score: 1 <Livier Carlos NP - Last Filed: 12/24/22 01:26> 2-tier Risk: unlikely risk (5%) <Livier Carlos NP - Last Filed: 12/24/22 01:26> 3-tier Risk: moderate risk (17%) <Livier Carlos NP - Last Filed: 12/24/22 01:26> Wells PE Clinical symptoms of DVT: 3 <Livier Carlos NP - Last Filed: 12/24/22 01:26> Heart rate > 100 p/min: 1.5 <Livier Carlos NP - Last Filed: 12/24/22 01:26> Previous DVT or PE: 1.5 <Livier Carlos NP - Last Filed: 12/24/22 01:26> Score: 6.0 <Livier Carlos NP - Last Filed: 12/24/22 01:26> 2-tier Risk: likely risk (17-53%) <Livier Carlos NP - Last Filed: 12/24/22 01:26> 3-tier Risk: high risk (78.4%) <Livier Carlos NP - Last Filed: 12/24/22 01:26> Critical Care Time Critical Care Time Critical Care Time: Yes <Livier Carlos NP - Last Filed: 12/24/22 01:26> Total Critical Care Time: 45 <Livier Carlos NP - Last Filed: 12/24/22 01:26> Attestation: I have personally provided critical care time exclusive of time spent on separately billable procedures. Time includes review of laboratory data, radiology results, discussion with consultants, and monitoring for potential decompensation. Interventions were performed as documented. <Livier Carlos NP - Last Filed: 12/24/22 01:26> Discharge Plan Discharge Prescriptions: No Action atorvastatin 40 mg Tablet 40 mg PO BEDTIME quetiapine 300 mg tablet 300 mg PO BEDTIME calcium carbonate-vitamin D3 600 mg-10 mcg (400 unit) tablet 1 tab PO BID dicyclomine 20 mg tablet 20 mg PO QID omeprazole 20 mg capsule,delayed release(DR/EC) 20 mg PO DAILY fluoxetine 20 mg capsule 40 mg PO QAM donepezil 10 mg tablet 10 mg PO BEDTIME cholecalciferol (vitamin D3) 50 mcg (2,000 unit) tablet 50 mcg PO DAILY multivitamin [One Daily Multivitamin] Tablet 1 tab PO DAILY acetaminophen 325 mg tablet 650 mg PO Q6H PRN (Reason: Pain) memantine 10 mg tablet 10 mg PO BID potassium citrate 10 mEq (1,080 mg) tablet extended release 10 meq PO DAILY <Luis Manuel Blanco - Last Filed: 12/23/22 19:01>
[2022-12-23 20:56] LABS: MANUAL DIFF FLAG NO
[2022-12-23 20:58] LABS: Basophils Percent Auto 0.2 % (0-2); Eosinophils Percent Auto 0.3 % (0-4); Hematocrit 35.1 % (37.0-47.0); Hemoglobin 11.8 g/dl (12.0-16.0); Imm Gran Abs Auto 0.08 X10*3/uL (0.00-0.03); Imm Gran Pct Auto 0.8 % (0.0-0.4); Lymphocytes Absolute Auto 1.2 X10*3/uL (1.2-4.9); Lymphocytes Percent Auto 12.2 % (20-40); Mean Corpuscular HGB Conc 33.6 g/dl (31.0-35.0); Mean Corpuscular Hemoglobin 31.6 pg (27.0-33.0); Mean Corpuscular Volume 94.1 fL (80.0-98.0); Mean Platelet Volume 9.7 fL (9.4-12.3); Monocytes Absolute Auto 0.9 X10*3/uL (0.1-1.2); Monocytes Percent Auto 9.3 % (2-11); Neutrophils Absolute Auto 7.7 x10*3/uL (2.0-8.3); Neutrophils Percent Auto 77.2 % (45-73); Platelet Count 145 X10*3/uL (160-400); Red Blood Count 3.73 X10*6/uL (4.20-5.50); Red Cell Distribution Width 11.7 % (11.0-16.0); White Blood Count 9.9 X10*3/uL (4.8-10.8)
[2022-12-23 21:04] LABS: INTERNATIONAL NORM RATIO 1.1 (0.9-1.1); Prothrombin Time 12.1 SEC (10.0-13.1)
[2022-12-23 21:06] LABS: Partial Thromboplastin Time 30.4 SEC (26.0-36.4)
[2022-12-23 21:10] LABS: Lactic Acid 1.1 mmol/L (0.5-2.0)
[2022-12-23 21:17] LABS: Alanine Aminotransferase 80 U/L (0-31); Albumin Level 3.7 g/dL (3.5-5.0); Alkaline Phosphatase 98 U/L (39-117); Anion Gap 13 (12-20); Aspartate Amino Transferase 71 U/L (5-31); Bilirubin Total 0.3 mg/dL (0.0-1.0); Blood Urea Nitrogen 21 mg/dL (9-16); Calcium 8.6 mg/dL (8.4-10.2); Carbon Dioxide 30 mmol/L (22-29); Chloride 98 mmol/L (96-108); Creatinine Clr Calc Pharmacy 59.2; Estimated Glomerular Filt Rate > 60; Glucose Random 128 mg/dL (60-115); Lipase 18 U/L (8-78); Magnesium 2.2 mg/dL (1.6-2.6); Potassium 3.9 mmol/L (3.3-5.1); Sodium 137 mmol/L (135-145); Total Protein 6.6 g/dL (6.5-8.0)
[2022-12-23 21:36] LABS: Influenza A PCR NEGATIVE (Negative); Influenza B PCR NEGATIVE (Negative); Resp Syncy Virus RNA Qual PCR NEGATIVE (Negative); SARS COV2 PCR INHOUSE NEGATIVE (Negative)
[2022-12-23] MEDS: 0.9 % Sodium Chloride 1,000 ML 999 ML IVCONT (22:03)
[2022-12-23 22:04] VITALS: BP 116/75; PULSE 86; RESP 20; TEMP 37
[2022-12-23] MEDS: LORazepam 2 MG/ML VIAL 1 MG IVPUSH (23:38)
[2022-12-23 23:39] VITALS: BP 109/60; PULSE 77; RESP 16; TEMP 37; O2SAT 96
[2022-12-24] MEDS: Enoxaparin Sodium 60 MG/0.6 ML SYRINGE SUBCUT ×2 (01:05→13:32)
--- NOTE | 2022-12-24 01:54 | PC.NURSE ---
pt niece leaving beside at this time. j carlos [phone]
--- NOTE | 2022-12-24 01:59 | P.HPHOSP_ITS ---
History of Present Illness Date of Service: 12/24/22 Chief Complaint: Leg swelling 72-year-old female with past medical history of severe dementia almost nonverbal presents to the hospital brought in by her knees for left leg swelling. Knees noticed the leg swollen today, she states that her aunt is usually ambulatory around the house and is not bed-bound or immobile but noticed that her left leg was swollen and had difficulty walking on it. Patient is nonverbal therefore I am unable to review systems. Knee states that she did not notice any other abnormality, patient did not have any evidence of pain. On arrival to the ED patient has a temperature of 101.1 degrees with a heart rate of 101 Labs are significant for WBC count of 9.9, hemoglobin of 11.8, hematocrit 35.1, BUN of 21, Chest x-ray showed no acute abnormality, venous duplex of the lower extremity showed acute DVT of left lower extremity, CT angiogram of the chest showed bilateral pulmonary emboli, with no acute abnormality in the abdomen or pelvis Patient will be admitted for further evaluation Review of Systems Review of Systems: Yes Unobtainable due to mental status [facility] Medical History (Updated 12/24/22 @ 02:03 by Amanda Dixon MD) Barretts esophagus Bilateral peroneal artery occlusion Dementia Depression Elevated cholesterol GERD (gastroesophageal reflux disease) History of COVID-19 IBS (irritable bowel syndrome) Osteopenia Surgical History H/O colonoscopy History of esophagogastroduodenoscopy (EGD) Social History Are you a primary child care sitter to a significant other at home: No Do you presently have visiting nurse or other home services: Yes (GOVERNMENT AFFAIRS FELLOW) Patient Tobacco Use Status: Never used Tobacco Advance Directives: No Advance Directives Information Provided: Yes Meds Allergies Allergy/AdvReac Type Severity Reaction Status Date / Time Penicillins Allergy Mild Rash Verified 08/20/22 08:38 Home Medications Medication Instructions Recorded Confirmed Last Taken Type acetaminophen 325 mg tablet 650 mg PO Q6H PRN Pain 12/26/21 08/20/22 Unknown History calcium carbonate 600 mg-vitamin 1 tab PO BID 12/26/21 08/20/22 Unknown History D3 10 mcg (400 unit) tablet cholecalciferol (vitamin D3) 50 50 mcg PO DAILY 12/26/21 Unknown History mcg (2,000 unit) tablet dicyclomine 20 mg tablet 20 mg PO QID 12/26/21 08/20/22 Unknown History donepezil 10 mg tablet 10 mg PO BEDTIME 12/26/21 08/20/22 Unknown History fluoxetine 20 mg capsule 40 mg PO QAM 12/26/21 08/20/22 Unknown History memantine 10 mg tablet 10 mg PO BID 12/26/21 08/20/22 Unknown History multivitamin (One Daily 1 tab PO DAILY 12/26/21 08/20/22 Unknown History Multivitamin tablet) omeprazole 20 mg capsule,delayed 20 mg PO DAILY 12/26/21 Unknown History release potassium citrate 10 mEq (1,080 10 meq PO DAILY 12/26/21 Unknown History mg) tablet,extended release quetiapine 300 mg tablet 300 mg PO BEDTIME 12/26/21 Unknown History atorvastatin 40 mg tablet 40 mg PO BEDTIME 08/18/22 08/20/22 Unknown History Physical Exam Vital Signs and Narrative: Vital Signs: Last Vital Signs Temp 98.6 F 12/23/22 23:39 Pulse 77 12/23/22 23:39 Resp 16 12/23/22 23:39 BP 109/60 12/23/22 23:39 Pulse Ox 96 12/23/22 23:39 O2 Del Method 12/23/22 23:39 BMI result Body Mass Index 25.4 Const: Other: Patient is sleeping, unable to conduct appropriate exam General: cooperative and no acute distress Eyes: General: appearance normal, both eyes and all related structures Resp: Effort & Inspection: normal respiratory effort Auscultation: clear to auscultation bilaterally Cardio: Rate: regular rate Rhythm: regular rhythm GI: Palpation (GI): Soft to palpation Auscultation: normal bowel sounds Skin: General skin exam: no rashes or lesions noted Neuro: Other: Unable to conduct Extrem: Other: Left lower extremity edema General: Yes normal to inspection Results Labs 12/23/22 20:50 12/23/22 20:50 Labs: Laboratory Results - last 24 hr 12/23/22 12/23/22 12/23/22 20:50 20:50 20:50 MCV 94.1 MCH 31.6 MCHC 33.6 RDW 11.7 Plt Count 145 L MPV 9.7 Immature Gran % (Auto) 0.8 H Neut % (Auto) 77.2 H Lymph % (Auto) 12.2 L [place] % (Auto) 9.3 Eos % (Auto) 0.3 Baso % (Auto) 0.2 Lymph # (Auto) 1.2 [place] # (Auto) 0.9 Eos # (Auto) 0.0 Baso # (Auto) 0.0 Abs Immat Gran (auto) 0.08 H Absolute Neuts (auto) 7.7 Absolute Nucleated RBC 0.000 Nucleated RBC % (auto) 0.0 PT INR APTT Anion Gap 13 Estim Creat Clear Calc 59.2 Estimated GFR > 60 Random Glucose 128 H Lactic Acid 1.1 Calcium 8.6 Magnesium 2.2 Total Bilirubin 0.3 AST 71 H ALT 80 H Alkaline Phosphatase 98 Total Protein 6.6 Albumin 3.7 Lipase 18 Influenza Type A (PCR) Influenza Type B (PCR) RSV RNA Qual (PCR) SARS-CoV-2 RNA (RT-PCR) 12/23/22 12/23/22 20:50 20:50 MCV MCH MCHC RDW Plt Count MPV Immature Gran % (Auto) Neut % (Auto) Lymph % (Auto) [place] % (Auto) Eos % (Auto) Baso % (Auto) Lymph # (Auto) [place] # (Auto) Eos # (Auto) Baso # (Auto) Abs Immat Gran (auto) Absolute Neuts (auto) Absolute Nucleated RBC Nucleated RBC % (auto) PT 12.1 INR 1.1 APTT 30.4 Anion Gap Estim Creat Clear Calc Estimated GFR Random Glucose Lactic Acid Calcium Magnesium Total Bilirubin AST ALT Alkaline Phosphatase Total Protein Albumin Lipase Influenza Type A (PCR) NEGATIVE Influenza Type B (PCR) NEGATIVE RSV RNA Qual (PCR) NEGATIVE SARS-CoV-2 RNA (RT-PCR) NEGATIVE Imaging Radiologist's Impressions: Impressions Chest X-Ray 12/23/22 19:13 IMPRESSION: No acute pulmonary disease. Venous Duplex 12/23/22 19:53 IMPRESSION: Acute DVT left lower extremity. Results were notified to Livier Roa NP by fuel cell technician Abdomen/Pelvis CT 12/24/22 00:34 IMPRESSION: 1. Bilateral pulmonary emboli. 2. No acute abnormality the abdomen or the pelvis. There is a moderate to large-volume of stool in the colon. There is no acute abnormality of the bowel. This critical result was discussed with Lviier Carlos HELMET HAT BRIM CUTTER on 12/24/2022, 12:50 AM and it was ascertained that the content and urgency of the report was understood at the time of direct communication. Chest CTA 12/24/22 00:34 IMPRESSION: 1. Bilateral pulmonary emboli. 2. No acute abnormality the abdomen or the pelvis. There is a moderate to large-volume of stool in the colon. There is no acute abnormality of the bowel. This critical result was discussed with Livier Carlos HELMET HAT BRIM CUTTER on 12/24/2022, 12:50 AM and it was ascertained that the content and urgency of the report was understood at the time of direct communication. Assessment and Plan (1) Left leg DVT: Status: Acute (2) Febrile: Status: Acute (3) Bilateral pulmonary embolism: Status: Acute Plan 72-year-old female with past medical history of advanced dementia presents to the hospital found to have left lower extremity DVT with bilateral PE # bilateral PE - no evidence of right heart strain, hemodynamically stable - will treat with Lovenox - monitor symptoms # left lower extremity DVT - no exacerbating or precipitating factors - knee states that patient is not immobile and is not bed-bound - treated with anticoagulation # fever - likely secondary to DVT, no evidence of acute infection, unlikely to be sepsis. - blood cultures drawn - but will hold off on antibiotics at this time as this is not acute infection. UA is obtained DVT prophylaxis: Lovenox Time Spent With Patient Time: Total time managing care of this patient today ____ minutes. Quality Stroke Does the patient have a stroke diagnosis?: No VTE Prior VTE?: No VTE Risk Level:: Medical - moderate - high VTE Device Contraindication: Treatment Not Indicated VTE Drug Contraindication: N/A - Med Ordered
--- NOTE | 2022-12-24 02:37 | MHC.EDTECH ---
Patient's Niece Renzo Chaudhari [phone]
[2022-12-24 02:45] LABS: Mean Platelet Volume 9.5 fL (9.4-12.3); PLT CLUMP 1; Red Cell Distribution Width 11.6 % (11.0-16.0)
[2022-12-24 02:47] LABS: Hematocrit 30.3 % (37.0-47.0); Hemoglobin 10.3 g/dl (12.0-16.0); Mean Corpuscular Hemoglobin 30.7 pg (27.0-33.0); Mean Corpuscular Volume 90.4 fL (80.0-98.0); Red Blood Count 3.35 X10*6/uL (4.20-5.50)
[2022-12-24 02:51] LABS: INTERNATIONAL NORM RATIO 1.1 (0.9-1.1); Prothrombin Time 12.6 SEC (10.0-13.1)
[2022-12-24 02:52] LABS: Platelet Count 132 X10*3/uL (160-400); White Blood Count 9.2 X10*3/uL (4.8-10.8)
[2022-12-24 02:54] LABS: Partial Thromboplastin Time 36.8 SEC (26.0-36.4)
--- NOTE | 2022-12-24 03:43 | PC.NURSE ---
late entry- pt medicated prior to CT scan. this rn remained in ct for entirity of scan
--- NOTE | 2022-12-24 03:46 | PC.NURSE ---
this rn entered pt room to find pt attempting to get out of bed. pt brief wet. pt bed linens changed at this time periwick put in place. pt resting on stretcher
--- NOTE | 2022-12-24 03:47 | PC.NURSE ---
late entry-pt sleeping arrousable to blood draw. pt unable to safety take Milk of mag. PO. this rn communicated this to dr sellers. pt md hold medication. documented in mar accordingly
[2022-12-24 03:54] VITALS: BP 134/74; PULSE 80; RESP 14; O2SAT 97
--- NOTE | 2022-12-24 06:52 | MHC.EDTECH ---
Pt vital signs documented on downtime form placed in pt chart
--- NOTE | 2022-12-24 07:19 | PC.NURSE ---
this rn and two ed techs assisted pt to stand and pivot to bedside commode. bed linen changed at this time. pt provided with mesh underwear to secure periwick placement. pt assisted back into bed at this time.
[2022-12-24 07:30] LABS: Basophils Percent Auto 0.2 % (0-2); Eosinophils Absolute Auto 0.1 X10*3/uL (0.0-0.4); Eosinophils Percent Auto 0.5 % (0-4); Hematocrit 32.6 % (37.0-47.0); Hemoglobin 11.1 g/dl (12.0-16.0); Imm Gran Abs Auto 0.06 X10*3/uL (0.00-0.03); Imm Gran Pct Auto 0.6 % (0.0-0.4); Lymphocytes Absolute Auto 1.1 X10*3/uL (1.2-4.9); Lymphocytes Percent Auto 12.2 % (20-40); MANUAL DIFF FLAG SCAN; Mean Corpuscular Hemoglobin 31.6 pg (27.0-33.0); Mean Corpuscular Volume 92.9 fL (80.0-98.0); Monocytes Absolute Auto 0.9 X10*3/uL (0.1-1.2); Monocytes Percent Auto 9.3 % (2-11); Neutrophils Absolute Auto 7.2 x10*3/uL (2.0-8.3); Neutrophils Percent Auto 77.2 % (45-73); PLT CLUMP 1; Red Blood Count 3.51 X10*6/uL (4.20-5.50); Red Cell Distribution Width 11.8 % (11.0-16.0); SCAN SMEAR FLAG 1
[2022-12-24 07:54] LABS: Platelet Count 123 X10*3/uL (160-400); SLIDE REVIEW VERIFIED; White Blood Count 9.4 X10*3/uL (4.8-10.8)
[2022-12-24 07:58] LABS: Anion Gap 13 (12-20); Blood Urea Nitrogen 16 mg/dL (9-16); Calcium 8.3 mg/dL (8.4-10.2); Carbon Dioxide 25 mmol/L (22-29); Chloride 104 mmol/L (96-108); Creatinine Clr Calc Pharmacy 59.2; Estimated Glomerular Filt Rate > 60; Glucose Random 127 mg/dL (60-115); Potassium 4.3 mmol/L (3.3-5.1); Sodium 138 mmol/L (135-145)
--- NOTE | 2022-12-24 08:58 | PHA.MEDREC ---
Pharmacy Consult ? Medication Reconciliation Pharmacy has completed the medication reconciliation. Pt with severe dementia, called primary contact Harinder (kyrgyz speaking only) who was unsure about med list. Called Dr. Aric Lobato's office for current med list, list was faxed with current prescribed meds from PCP from [facility]. Unsure of OTC meds
[2022-12-24 09:23] LABS: Procalcitonin 0.12 ng/mL
--- NOTE | 2022-12-24 09:23 | MHC.CM.PN ---
Patient is diagnosed with Severe Dementia; CM spoke with Primary Contact/Brother/Harinder @ [phone] and addressed AGUDELO with him (original will be mailed to Harinder and a copy has been placed on the chart). 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 CM has initiated and will follow for dc planning. Patient has received Covid vax and her PCP is Dr. Aric Lobato.
--- NOTE | 2022-12-24 09:24 | PC.NURSE ---
Pt sleeping for most of morning, phlebotomy obtained lab work. Pt resp even and unlabored.
[2022-12-24 09:29] VITALS: BP 108/59; PULSE 79; RESP 18; TEMP 37.3
[2022-12-24 09:33] LABS: Alanine Aminotransferase 59 U/L (0-31); Alkaline Phosphatase 88 U/L (39-117); Aspartate Amino Transferase 45 U/L (5-31); Bilirubin Direct < 0.2 mg/dL (0.0-0.5); Bilirubin Total 0.4 mg/dL (0.0-1.0); C Reactive Protein 12.48 mg/dL (< or = 0.50)
[2022-12-24 10:14] VITALS: BP 108/59; PULSE 74; RESP 17; TEMP 36.1; O2SAT 95
[2022-12-24] MEDS: polyethylene glycoL 3350 17 GM POWD.PACK PO ×2 (10:44→21:24)
[2022-12-24] MEDS: 0.9 % Sodium Chloride Flush 3 ML SYRINGE IVFLUSH ×2 (10:44→16:00)
[2022-12-24 10:49] VITALS: BMI 25.4
--- NOTE | 2022-12-24 12:41 | PM.EVENT ---
Event Note Date of Service: 12/24/22 Event Note: Day hospitalist update S: L calf swollen No dyspnea Not hypoxic Unable to obtain ROS due to pt's advanced dementia O: Temp Pulse Resp BP Pulse Ox O2 Del Method 97.0 F 74 17 108/59 L 95 Room Air 12/24/22 10:14 12/24/22 10:14 12/24/22 10:14 12/24/22 10:14 12/24/22 10:14 12/24/22 10:14 Gen: in no acute distress HEENT: sclera anicteric, moist mucus membranes Neck: supple Lungs: clear to auscultation bilaterally Heart: regular rate and rhythm, no murmurs Abd: soft, non-tender, non-distended Ext: L calf swollen Skin: warm/well-perfused Neuro: alert, minimally verbal, unable to assess orientation Psych: impaired insight Labs: Hb 11.1, Cr 0.68, CRP 12.48, PCT 0.12 A/P: hospital day#1 72yo F with past medical history of advanced dementia presents to the hospital found to have left lower extremity DVT with bilateral PE # bilateral subsegmental PE with acute LLE DVT - therapeutic enoxaparin, eventual change to apixaban? # fever - follow BCx + obtain UCx though could be due to the PE # dementia - continue memantine + donepezil # VTE ppx: on treatment-dose LMWH # dispo: eventual return home In my clinical judgment, the patient requires continued inpatient hospitalization for the following reasons: PE, r/o infection Time Spent With Patient Time: Total time managing care of this patient today __25__ minutes.
--- NOTE | 2022-12-24 15:44 | MHC.SL.SWA ---
Speech Pathologist Impression: Risk of Aspiration Due to: Reduced Cognition Dysphasia Diet Status: Liquid Consistency and Strategies for Safe Swallow: Liquid Intake Recommendation: Thin Liquid Intake Strategies: Small Sips Solid Food Consistency: Dietary Recommendations: Chopped/Advanced (NDD3) Additional Modifications to Solid Foods: Patient will need one to one supervision with assistance as needed due to advanced dementia/confusion. Patient would benefit from pre-cut food for ease of consumption. Oral Medication Intake: Whole with Puree Please contact the pharmacy regarding appropriate crushable or liquid drug formulations that are available whenever modified delivery is recommended. Compensatory Strategies and Precautions to be Taken for Safe Swallow: Sitting Upright (90 deg) Liquids from Cup Liquids from Straw Small Bites and Sips Supervision While Eating and Drinking for Safe Swallow: Total Supervision (1:1) Foods to Avoid: Swallowing Recommended Treatments: Compens. Strategy Educat. Recommendation for Speech: Inpatient Speech Therapy Comment: Patient presents with swallow mostly WFL, however is at risk for aspiration or difficulty during meals due to advanced dementia/confusion. Recommend patient continue on current diet of Chopped/Advanced with Thin Liquids, pills whole in puree or liquid as tolerated by patient. Patient will require supervision and assistance during meals due to level of confusion/dementia. SELLING UNDERWRITER will follow up 1-2X for toleration of diet. , RD notified of recommendations in secure text, RN advised in person. Frequency/Duration: Date Range for Service Req: Timeline to reassess: Marketing Finance Specialist Clinican/Clinical Fellow: No Supervisory Statement: I have reviewed and agree with the student/clinical fellow's documentation: N/A Speech Language Pathologist: Fabiola Swift M.A., CCC-SELLING UNDERWRITER
[2022-12-24 15:55] VITALS: BP 101/80; PULSE 91; RESP 15; TEMP 36.9
[2022-12-24 19:37] VITALS: BP 100/53; PULSE 82; RESP 14; TEMP 36.8
[2022-12-24] MEDS: Memantine HCl 10 MG TABLET PO (21:24)
[2022-12-24] MEDS: Donepezil HCl 10 MG TABLET PO (21:24)
[2022-12-24 21:36] VITALS: O2SAT 93
[2022-12-25] MEDS: 0.9 % Sodium Chloride Flush 3 ML SYRINGE IVFLUSH (00:16)
[2022-12-25 00:17] VITALS: BP 118/55; PULSE 78; RESP 15; TEMP 36.4; O2SAT 93
[2022-12-25] MEDS: traZODone HCL 50 MG TABLET PO (00:17)
[2022-12-25] MEDS: Enoxaparin Sodium 60 MG/0.6 ML SYRINGE SUBCUT ×2 (00:17→12:29)
[2022-12-25 02:16] LABS: Prothrombin Time 11.9 SEC (10.0-13.1)
[2022-12-25 08:00] VITALS: BP 130/64; PULSE 71; RESP 19; TEMP 36.8; O2SAT 91
[2022-12-25 08:52] LABS: MANUAL DIFF FLAG NO
[2022-12-25 08:54] LABS: Basophils Percent Auto 0.3 % (0-2); Eosinophils Absolute Auto 0.1 X10*3/uL (0.0-0.4); Eosinophils Percent Auto 0.8 % (0-4); Hematocrit 35.9 % (37.0-47.0); Hemoglobin 11.9 g/dl (12.0-16.0); Imm Gran Abs Auto 0.02 X10*3/uL (0.00-0.03); Imm Gran Pct Auto 0.3 % (0.0-0.4); Lymphocytes Absolute Auto 1.1 X10*3/uL (1.2-4.9); Lymphocytes Percent Auto 16.9 % (20-40); Mean Corpuscular HGB Conc 33.1 g/dl (31.0-35.0); Mean Corpuscular Hemoglobin 30.7 pg (27.0-33.0); Mean Corpuscular Volume 92.8 fL (80.0-98.0); Mean Platelet Volume 9.3 fL (9.4-12.3); Monocytes Absolute Auto 0.7 X10*3/uL (0.1-1.2); Monocytes Percent Auto 10.4 % (2-11); Neutrophils Absolute Auto 4.5 x10*3/uL (2.0-8.3); Neutrophils Percent Auto 71.3 % (45-73); Platelet Count 199 X10*3/uL (160-400); Red Blood Count 3.87 X10*6/uL (4.20-5.50); Red Cell Distribution Width 11.7 % (11.0-16.0); White Blood Count 6.3 X10*3/uL (4.8-10.8)
[2022-12-25 09:08] LABS: Alanine Aminotransferase 67 U/L (0-31); Albumin Level 3.3 g/dL (3.5-5.0); Alkaline Phosphatase 100 U/L (39-117); Anion Gap 14 (12-20); Aspartate Amino Transferase 55 U/L (5-31); Bilirubin Total 0.5 mg/dL (0.0-1.0); Blood Urea Nitrogen 14 mg/dL (9-16); Calcium 8.7 mg/dL (8.4-10.2); Carbon Dioxide 30 mmol/L (22-29); Chloride 101 mmol/L (96-108); Creatinine Clr Calc Pharmacy 63.8; Estimated Glomerular Filt Rate > 60; Glucose Random 110 mg/dL (60-115); Sodium 141 mmol/L (135-145)
[2022-12-25] MEDS: Memantine HCl 10 MG TABLET PO (09:37)
[2022-12-25] MEDS: Multivitamin TABLET 1 TAB PO (09:37)
--- NOTE | 2022-12-25 10:29 | MHC.SLORD ---
Speech Language Pathology Order Status: Pt sound asleep, not appropriate for PO trials this morning d/t lethargic state. Pt is on a chopped diet (NDD3) and thin liquids, aspiration risk d/t confusion/dementia. Recommend 1:1 supervision, provide assistance feeding as needed.
--- NOTE | 2022-12-25 13:55 | P.DS_ITS ---
DS: Providers Provider Date of Service: 12/25/22 Date of admission: 12/24/22 01:57 Date of discharge: 12/25/22 Primary care physician: Aric Lobato MD DS: Diagnosis Discharge Diagnosis (1) Left leg DVT: Status: Acute (2) Febrile: Status: Acute (3) Bilateral pulmonary embolism: Status: Acute DS: Summary Hospital Course Hospital Course: from the admission H+P by hospitalist Amanda Dixon MD, 12/24/22: 72-year-old female with past medical history of severe dementia almost nonverbal presents to the hospital brought in by her knees for left leg swelling.? Knees noticed the leg swollen today, she states that her aunt is usually ambulatory around the house and is not bed-bound or immobile but noticed that her left leg was swollen and had difficulty walking on it.? Patient is nonverbal therefore I am unable to review systems.? Knee states that she did not notice any other abnormality, patient did not have any evidence of pain.? On arrival to the ED patient has a temperature of 101.1 degrees with a heart rate of 101 Labs are significant for WBC count of 9.9, hemoglobin of 11.8, hematocrit 35.1, BUN of 21, Chest x-ray showed no acute abnormality, venous duplex of the lower extremity showed acute DVT of left lower extremity, CT angiogram of the chest showed bilateral pulmonary emboli, with no acute abnormality in the abdomen or pelvis Patient will be admitted for further evaluation 72yo F with past medical history of advanced dementia presents to the hospital with leg swelling and found to have left lower extremity DVT with bilateral subsegmental PE. No signs of right heart strain and she was not hypoxic or in any respiratory distress. She was treated with therapeutic enoxaparin then discharged on apixaban. Fever was attributed to the PE in the absence of evidence of infection. She was discharged on on apixaban and to continue PLUMBING WAREHOUSE HELPER services. Time Spent with Patient Time attestation: Total time managing care of this patient today ___40_ minutes. Discharge coordination time: Greater than 30 minutes Quality: Safe Use of Opioids Does Pt have an Active Cancer Diagnosis on the Problem List?: No Quality: Stroke Does the patient have a stroke diagnosis?: No Physical Exam Vital Signs: Vital Signs: Last Vital Signs Temp 98.3 F 12/25/22 08:00 Pulse 71 12/25/22 08:00 Resp 19 12/25/22 08:00 BP 130/64 12/25/22 08:00 Pulse Ox 91 L 12/25/22 08:00 O2 Del Method Room Air 12/25/22 08:00 BMI result Body Mass Index 25.4 Gen: in no acute distress HEENT: sclera anicteric, moist mucus membranes Neck: supple Lungs: clear to auscultation bilaterally Heart: regular rate and rhythm, no murmurs Abd: soft, non-tender, non-distended Ext: L calf swollen Skin: warm/well-perfused Neuro: alert, minimally verbal, unable to assess orientation Psych: impaired insight DS: Data Data Completed and Pending Completed studies during hospitalization [Text1]: Laboratory Results WBC 6.3 X10*3/uL (4.8-10.8) 12/25/22 08:36 RBC 3.87 X10*6/uL (4.20-5.50) L 12/25/22 08:36 Hgb 11.9 g/dl (12.0-16.0) L 12/25/22 08:36 Hct 35.9 % (37.0-47.0) L 12/25/22 08:36 MCV 92.8 fL (80.0-98.0) 12/25/22 08:36 MCH 30.7 pg (27.0-33.0) 12/25/22 08:36 MCHC 33.1 g/dl (31.0-35.0) 12/25/22 08:36 RDW 11.7 % (11.0-16.0) 12/25/22 08:36 Plt Count 199 X10*3/uL (160-400) D 12/25/22 08:36 MPV 9.3 fL (9.4-12.3) L 12/25/22 08:36 Immature Gran % (Auto) 0.3 % (0.0-0.4) 12/25/22 08:36 Neut % (Auto) 71.3 % (45-73) 12/25/22 08:36 Lymph % (Auto) 16.9 % (20-40) L 12/25/22 08:36 Kern % (Auto) 10.4 % (2-11) 12/25/22 08:36 Eos % (Auto) 0.8 % (0-4) 12/25/22 08:36 Baso % (Auto) 0.3 % (0-2) 12/25/22 08:36 Lymph # (Auto) 1.1 X10*3/uL (1.2-4.9) L 12/25/22 08:36 Kern # (Auto) 0.7 X10*3/uL (0.1-1.2) 12/25/22 08:36 Eos # (Auto) 0.1 X10*3/uL (0.0-0.4) 12/25/22 08:36 Baso # (Auto) 0.0 X10*3/uL (0.0-0.2) 12/25/22 08:36 Abs Immat Gran (auto) 0.02 X10*3/uL (0.00-0.03) 12/25/22 08:36 Absolute Neuts (auto) 4.5 x10*3/uL (2.0-8.3) 12/25/22 08:36 Absolute Nucleated RBC 0.000 X10*3/uL (0.0-0.012) 12/25/22 08:36 Nucleated RBC % (auto) 0.0 /100WBC (0.0-0.2) 12/25/22 08:36 Smear Tech's Comments VERIFIED 12/24/22 07:22 PT 11.9 SEC (10.0-13.1) 12/25/22 02:03 INR 1.0 (0.9-1.1) 12/25/22 02:03 APTT 36.8 SEC (26.0-36.4) H D 12/24/22 02:37 Sodium 141 mmol/L (135-145) 12/25/22 08:36 Potassium 4.0 mmol/L (3.3-5.1) 12/25/22 08:36 Chloride 101 mmol/L (96-108) 12/25/22 08:36 Carbon Dioxide 30 mmol/L (22-29) H 12/25/22 08:36 Anion Gap 14 (12-20) 12/25/22 08:36 BUN 14 mg/dL (9-16) 12/25/22 08:36 Creatinine 0.63 mg/dL (0.5-1.4) 12/25/22 08:36 Estim Creat Clear Calc 63.8 12/25/22 08:36 Estimated GFR > 60 12/25/22 08:36 Random Glucose 110 mg/dL (60-115) 12/25/22 08:36 Lactic Acid 1.1 mmol/L (0.5-2.0) 12/23/22 20:50 Calcium 8.7 mg/dL (8.4-10.2) 12/25/22 08:36 Magnesium 2.2 mg/dL (1.6-2.6) 12/23/22 20:50 Total Bilirubin 0.5 mg/dL (0.0-1.0) 12/25/22 08:36 Direct Bilirubin < 0.2 mg/dL (0.0-0.5) 12/24/22 07:22 AST 55 U/L (5-31) H 12/25/22 08:36 ALT 67 U/L (0-31) H 12/25/22 08:36 Alkaline Phosphatase 100 U/L (39-117) 12/25/22 08:36 C-Reactive Protein 12.48 mg/dL (< or = 0.50) H 12/24/22 07:22 Total Protein 6.0 g/dL (6.5-8.0) L 12/25/22 08:36 Albumin 3.3 g/dL (3.5-5.0) L 12/25/22 08:36 Lipase 18 U/L (8-78) 12/23/22 20:50 Procalcitonin 0.12 ng/mL 12/24/22 07:22 Influenza Type A (PCR) NEGATIVE (Negative) 12/23/22 20:50 Influenza Type B (PCR) NEGATIVE (Negative) 12/23/22 20:50 RSV RNA Qual (PCR) NEGATIVE (Negative) 12/23/22 20:50 SARS-CoV-2 RNA (RT-PCR) NEGATIVE (Negative) 12/23/22 20:50 Impressions Chest X-Ray 12/23/22 19:13 IMPRESSION: No acute pulmonary disease. Venous Duplex 12/23/22 19:53 IMPRESSION: Acute DVT left lower extremity. Results were notified to Livier Roa FIELD ARTILLERY SENIOR SERGEANT by police service technician Abdomen/Pelvis CT 12/24/22 00:34 IMPRESSION: 1. Bilateral pulmonary emboli. 2. No acute abnormality the abdomen or the pelvis. There is a moderate to large-volume of stool in the colon. There is no acute abnormality of the bowel. This critical result was discussed with Livier Carlos NP on 12/24/2022, 12:50 AM and it was ascertained that the content and urgency of the report was understood at the time of direct communication. Chest CTA 12/24/22 00:34 IMPRESSION: 1. Bilateral pulmonary emboli. 2. No acute abnormality the abdomen or the pelvis. There is a moderate to large-volume of stool in the colon. There is no acute abnormality of the bowel. This critical result was discussed with Livier Carlos NP on 12/24/2022, 12:50 AM and it was ascertained that the content and urgency of the report was understood at the time of direct communication. Discharge Plan Discharge Patient Disposition: Home Health Service Discharge Diagnosis: fever due to pulmonary embolism due to left leg DVT Referrals: Name,MD Aric [Primary Care Provider] - 1 Week Discharge Medications: New Eliquis DVT-PE Treat 30D Start 5 mg (74 tabs) tablets,dose pack See Rx Instructions .ROUTE .COMPLEX Qty: 74 0RF Rx Instructions: 2 tabs [10 mg] twice daily for 7 days, then 1 tab [5 mg] twice daily Continued polyethylene glycol 3350 [Miralax] 17 gram/dose Powder 17 g PO BEDTIME donepezil 10 mg tablet 10 mg PO BEDTIME multivitamin [One Daily Multivitamin] Tablet 1 tab PO DAILY memantine 10 mg tablet 10 mg PO BID Discharge Orders: Discharge Order (Routine); Ordered 12/25/22 Ordered By: Grayson Gomez Diet: Advance to usual diet Activity on Discharge: As tolerated Stand Alone Forms: Patient Portal Discharge page Care Plan Goals: treatment of blood clots Health Concerns: fever due to pulmonary embolism due to left leg DVT Plan of Treatment: take apixaban [ELIQUIS] 5 mg tabs as follows: - 2 tabs [total 10 mg] twice daily for 7 days, then - 1 tab [5 mg] twice daily indefinitely Please follow up with your primary care doctor within 1 week. Return to the hospital if you experience recurrent or worsening symptoms. Assessment: See Discharge Summary.
--- NOTE | 2022-12-25 16:14 | MHC.CM.PN ---
p[t dcd home today with hvns dr rosen aware that pt will not be seen for 72 hrs by [facility]na and approved same
--- NOTE | 2022-12-25 16:49 | PC.NURSE ---
pt alert to self (baseline), no tele, no IV, discharge instruction given to pt Fara Sutherland, at bedside. verbalizes understanding.
== END 2022-12-25 16:51 | disposition home health service (06) ==
LOC: HO.ED 12-24 01:37 → HO.EDOVER 12-24 02:03 → HO.IMC 12-24 07:28
PROVIDERS: Physician Assistant; Admitting Provider Internal Medicine; Emergency Provider Internal Medicine; PCP Internal Medicine Geriatric Medicine; Visit Provider Family Medicine
DX: I82.402 Acute embolism and thrombosis of unspecified deep veins of left lower extremity (principal); R50.9 Fever, unspecified; I26.99 Other pulmonary embolism without acute cor pulmonale; Z20.822 Contact with and (suspected) exposure to COVID-19; Z20.828 Contact with and (suspected) exposure to other viral communicable diseases; M79.605 Pain in left leg; F03.90 Unspecified dementia, unspecified severity, without behavioral disturbance, psychotic disturbance, mood disturbance, and anxiety; K21.9 Gastro-esophageal reflux disease without esophagitis; E78.00 Pure hypercholesterolemia, unspecified; Z79.82 Long term (current) use of aspirin; Z79.899 Other long term (current) drug therapy
CPT/HCPCS: 0241U; 36415; 71045; 71275; 74177; 80048; 80053; 80076; 83605; 83690; 83735; 84145; 85025; 85027; 85610; 85730; 86140; 87040; 92610; 93971; 96361; 96372; 96374; 99222; 99285; J1650; J2060

== ENCOUNTER 2023-02-11 09:11 | Outpatient (REF) | payer OTHER, SELFPAY ==
--- NOTE | ~2023-02-11 | US_ITS ---
EXAMINATION: US ABDOMEN COMPLETE CLINICAL INFORMATION: Abnormal liver function tests. COMPARISON: CT abdomen and pelvis with intravenous contrast dated 12/24/2022. Renal ultrasound dated 12/22/2010. TECHNIQUE: Real-time imaging of the abdominal viscera. FINDINGS: PANCREAS: Normal. ABDOMINAL AORTA: The proximal, mid, and distal segments are normal in caliber. INFERIOR VENA CAVA: Visualized portions are normal. LIVER: Normal. The liver is normal in size. The liver contour is normal. Parenchymal echogenicity is normal. No focal hepatic lesion. There is no intrahepatic biliary duct dilatation seen. GALLBLADDER: There is a [id number] sign, consistent with marked cholelithiasis. No gallbladder wall thickening or pericholecystic fluid is seen. COMMON BILE DUCT: Normal in caliber measuring 0.5 cm in diameter. RIGHT KIDNEY: Normal. No hydronephrosis. No renal calculi or focal parenchymal lesions. The kidney measures 9.2 cm in maximum dimension. LEFT KIDNEY: Normal. No hydronephrosis. No renal calculi or focal parenchymal lesions. The kidney measures 8.5 cm in maximum dimension. SPLEEN: Normal. The spleen measures 7.1 cm in maximum dimension. FREE FLUID: None. US/US abdomen complete IMPRESSION: 1. There is marked cholelithiasis, without cholecystitis or choledocholithiasis seen. 2. Otherwise, unremarkable examination. In particular, imaging of the liver is within normal limits.
== END 2023-02-11 09:12 | disposition home or self-care (01) ==
LOC: HO.US 09:11
PROVIDERS: PCP Internal Medicine Geriatric Medicine; Visit Provider Internal Medicine Geriatric Medicine
DX: R79.89 Other specified abnormal findings of blood chemistry (principal)
CPT/HCPCS: 76700

== ENCOUNTER → 2023-03-15 10:17 | Outpatient (BNVA) | payer OTHER, SELFPAY | PROVIDERS: PCP Internal Medicine Geriatric Medicine; Visit Provider Surgery | DX: K80.50 Calculus of bile duct without cholangitis or cholecystitis without obstruction (principal) | CPT/HCPCS: 99202 ==

== ENCOUNTER 2023-04-13 07:21 | Day surgery (SDC) | payer OTHER, SELFPAY ==
[2023-04-09 10:27] VITALS: BMI 19.9
[2023-04-09 10:35] VITALS: BMI 19.9
--- NOTE | 2023-04-12 10:35 | MHC.SHP ---
Pre-Procedural Eval Section A Date of Service: 04/12/23 The patient is an INPATIENT: No Changes since office visit: No Cold of Flu in the past 2 weeks, No New Medical Problems, No Changes in Medication and No Patient answered all questions The History & Physical has been completed within 30 days and I have reviewed it.: Yes Section B Chief Complaint: Calculus of bile duct without cholangitis or montserrat Allergies: Allergies Allergy/AdvReac Type Severity Reaction Status Date / Time Penicillins Allergy Mild Rash Verified 03/15/23 10:41 Plan I have reviewed the history and physical and performed a pertinent physical examination on my patient. No changes have occurred unless specified. Time Spent With Patient Time: Total time managing care of this patient today ____ minutes.
--- NOTE | 2023-04-12 10:48 | PC.NURSE ---
Spoke with patient's brother Harinder w/ community services manager Per brother patient has been off Eliquis since 03/25/[address] Lobato. Chart had workload from general surgeons office that PCP advised to be off Eliquis 2 days prior to surgery which would've been 04/11 & 04/12. Anread from office reached out to inform PCP that Eliquis was stopped long ago by patient family. Ifeanyi Dye- PCP office spoke with patient who reported no SOB or concerning symptoms at this time thus can proceed with surgery as scheduled & to resume Eliquis after procedure.
[2023-04-13] VITALS (11 sets, daily range): BP systolic 120–175; BP diastolic 70–88; PULSE 52–61; RESP 16–18; TEMP 36.1–36.9; O2SAT 96–100
--- NOTE | 2023-04-13 08:07 | P.CONAN_ITS ---
HPI - Anesthesia Eval Consult details Narrative: for tiffanie mariano, no apixaban since 03/25 [facility] Active Problems Active Problems: All Active Problems (Updated 04/09/23 @ 10:20 by Corina Colvin RN) High cholesterol (Acute) Graves's esophagus (Acute) GERD (gastroesophageal reflux disease) (Acute) Osteopenia (Acute) Weight loss (Acute) Bilateral pulmonary embolism (Acute) Left leg DVT (Acute) Recurrent biliary colic (Acute) Dementia (Acute) Past Medical History Medical History Barretts esophagus Bilateral peroneal artery occlusion Dementia Depression Elevated cholesterol GERD (gastroesophageal reflux disease) History of COVID-19 IBS (irritable bowel syndrome) Osteopenia Family History Family history of problems with anesthesia: No Surgical History Surgical History H/O colonoscopy History of esophagogastroduodenoscopy (EGD) Hx of bilateral cataract extraction History of Problems with Anesthesia: No Social History Social History Household Members: Family Housing: House Are you a primary long term care administrator to a significant other at home: No Do you presently have 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 If so, by whom?: No Are you DNR?: No Advance Directives Information Provided: Yes (as above noted-to bring copy DOS) Advance Directives on File: No Recently lost weight without trying: No Eating poorly because of decreased appetite: No Nutrition Risks: No Nutritional Risk Poor oral hygiene: No service: No Current occupational status: retired Meds Allergies Allergy/AdvReac Type Severity Reaction Status Date / Time Penicillins Allergy Mild Rash Verified 04/13/23 08:05 Home Medications Medication Instructions Recorded Confirmed Last Taken Type donepezil 10 mg tablet 10 mg PO BEDTIME 12/26/21 04/09/23 Unknown History memantine 10 mg tablet 10 mg PO BID 12/26/21 04/09/23 Unknown History multivitamin (One Daily 1 tab PO DAILY 12/26/21 04/09/23 Unknown History Multivitamin tablet) polyethylene glycol 3350 17 17 g PO BEDTIME 12/24/22 04/09/23 Unknown History gram/dose oral powder (Miralax) trazodone 50 mg tablet 50 mg PO BEDTIME 03/15/23 04/09/23 Unknown History Exam Exam Date and Time: April 13, 2023 0807 Height,Weight and Vital Signs: Height 5 ft Weight 46.266 kg Airway Mallampati Class: II TM Dist: >3cm Neck ROM: Full Heart: rrr Lungs: cta Assessment and Plan Assessment Anesthesia Assessment: Anesthesia Plan Discussed and Chart Reviewed Final Anesthetic Review Family History of Problems with Anesthesia: No History of Problems with Anesthesia: No NPO: Yes ASA Class: III Final Preanesthetic Review: No Changes in Pt Med Stat, Meds/Allgs Chart Reviewed, Consent Obtained/Reviewed and Anes Risks/Benef Reviewed Patient Risk: Intermediate Procedure Risk: Intermediate Anesthetic Plan Anesthetic Plan: GA Disposition: Standard PACU (dementia, has health care proxy)
[2023-04-13] MEDS: Lactated Ringers 1,000 ML 50 ML IVCONT (08:28)
--- NOTE | 2023-04-13 11:31 | W.PM.OPN ---
Operative Note Operative Note Date of Service: 04/13/23 Narrative: Preoperative diagnosis: [] recurrent biliary colic Postop diagnosis: [] same Procedure [] laparoscopic cholecystectomy Surgeon: [] Mason Manager Protein: [] DIO Saucedo Type of Anesthesia: [] general Indication for surgery: [] a markedly contracted intrahepatic gallbladder with multiple gallstones. Omental adhesions to the gallbladder. Incidental finding of a very edematous/friable liver. Findings: [] Patient brought to the operating room, placed on the operative table in supine position, after adequate level of general anesthesia was induced, the patient's abdomen was prepped and draped in usual sterile fashion. Common bile duct was identified and preserved throughout the procedure. Cystic artery and cystic duct were each identified, circumferentially skeletonized and traced directly into the gallbladder. Critical view obtained. Each was clipped proximally x2, distally x1, and transected. Gallbladder which was very intrahepatic was then cauterized from the gallbladder fossa using electro Bovie. Specimen was placed in an Endo-Catch bag, a retrieved through the umbilical port. Abdominal cavity was very copiously irrigated and secured hemostasis. As noted above, liver was quite friable , and oozy. Surgicel was used to assist in liver bed hemostasis along with Bovie. Patient had been on Eliquis which was held prior to surgery. All ports were removed under direct laparoscopic view. Wounds were closed in the following manner; umbilical wound has fascia reapproximated using interrupted 0 Vicryl suture. Skin wounds were closed using subcuticular 4-0 Vicryl sutures followed by Steri-Strips and sterile dressings. Wounds were infiltrated 0.5% Marcaine at completion. Sponge, needle, and instrument counts reported correct. Patient tolerated the procedure well and emerged from anesthesia in stable condition. EBL approximately 50 cc
[2023-04-13] MEDS: oxyCODONE HCl Immed Release 5 MG TABLET PO (12:10)
[2023-04-13] MEDS: fentaNYL citrate/PF 100 MCG/2 ML VIAL 25 MCG IVPUSH (12:21)
== END 2023-04-13 13:39 | disposition home or self-care (01) ==
PROVIDERS: PCP Internal Medicine Geriatric Medicine; Visit Provider Surgery
PROC: 0FT44ZZ Resection of Gallbladder, Percutaneous Endoscopic Approach (ICD-10-PCS; CPT 47562; principal; 2023-04-13 09:10)
DX: K80.44 Calculus of bile duct with chronic cholecystitis without obstruction (principal); F03.90 Unspecified dementia, unspecified severity, without behavioral disturbance, psychotic disturbance, mood disturbance, and anxiety; Z86.711 Personal history of pulmonary embolism; Z86.718 Personal history of other venous thrombosis and embolism; Z79.01 Long term (current) use of anticoagulants; Z88.0 Allergy status to penicillin
CPT/HCPCS: 47562; 88304; J0131; J1100; J2405; J3010

== ENCOUNTER → 2023-04-13 07:21 | Outpatient (BNV) | payer OTHER, SELFPAY | PROVIDERS: PCP Internal Medicine Geriatric Medicine; Visit Provider Surgery | DX: K80.20 Calculus of gallbladder without cholecystitis without obstruction (principal) | CPT/HCPCS: 47562 ==

== ENCOUNTER 2023-04-21 09:45 | Outpatient (AMB) | payer OTHER, SELFPAY ==
[2023-04-21 09:52] VITALS: BP 133/83; PULSE 66
--- NOTE | 2023-04-21 09:52 | A.OFFVIS_ITS ---
Intake Vital Signs 04/21/23 09:52 Weight 79 lb BP 133/83 Blood Pressure Location Rt brachial Position Sitting Pulse 66 Intake Visit Reasons: S/P lap montserrat Intake Note: Patient here s/p lap montserrat. Patient reports incisions healing well. Denies pain, bleeding or itch. Information Technology Data Analyst Required: No Accompanied by: tania Pizano Allergies Penicillins Allergy (Mild, Verified 04/21/23 09:53) Rash HPI HPI Comments History of Present Illness Details Patient presents with her brother who is her branch coordinator. Status post lap choly. She has time diet having normal bowel habits. There are no wound issues or complaints. [facility] Medical History Barretts esophagus Bilateral peroneal artery occlusion Dementia Depression Elevated cholesterol GERD (gastroesophageal reflux disease) History of COVID-19 IBS (irritable bowel syndrome) Osteopenia Surgical History (Updated 04/20/23 @ 14:52 by ONEYDA Murguia) H/O colonoscopy History of esophagogastroduodenoscopy (EGD) History of laparoscopic cholecystectomy (04/13/23) Hx of bilateral cataract extraction Social History Household Members: Family Housing: House Are you a primary care transitions nurse to a significant other at home: No Do you presently have 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 All wounds clean dry and intact. Assessment & Plan Assessment & Plan (1) Recurrent biliary colic: Code(s): K80.50 - Calculus of bile duct without cholangitis or cholecystitis without obstruction Plan Patient's brother has been given local instructions, and she will follow-up p.r.n.. Coding Level of Care Code Global (08175) Diagnoses Recurrent biliary colic K80.50
== END 2023-04-21 10:01 | disposition home or self-care (01) ==
LOC: HO.HGS 09:45
PROVIDERS: PCP Internal Medicine Geriatric Medicine; Visit Provider Surgery
DX: K80.50 Calculus of bile duct without cholangitis or cholecystitis without obstruction (principal)
CPT/HCPCS: 99024

== ENCOUNTER → 2023-04-21 09:45 | Outpatient (BNVA) | payer OTHER, SELFPAY | PROVIDERS: PCP Internal Medicine Geriatric Medicine; Visit Provider Surgery ==

== ENCOUNTER 2024-06-14 10:04 | Outpatient (REF) | payer OTHER, SELFPAY ==
[2024-06-14 11:28] LABS: MANUAL DIFF FLAG NO
[2024-06-14 11:40] LABS: Basophils Percent Auto 0.6 % (0-2); Eosinophils Absolute Auto 0.3 X10*3/uL (0.0-0.4); Eosinophils Percent Auto 5.3 % (0-4); Hemoglobin 12.6 g/dl (12.0-16.0); Imm Gran Abs Auto 0.01 X10*3/uL (0.00-0.03); Imm Gran Pct Auto 0.2 % (0.0-0.4); Lymphocytes Absolute Auto 1.2 X10*3/uL (1.2-4.9); Mean Corpuscular HGB Conc 33.2 g/dl (31.0-35.0); Mean Corpuscular Hemoglobin 30.8 pg (27.0-33.0); Mean Corpuscular Volume 92.9 fL (80.0-98.0); Mean Platelet Volume 9.3 fL (9.4-12.3); Monocytes Absolute Auto 0.5 X10*3/uL (0.1-1.2); Monocytes Percent Auto 11.1 % (2-11); Neutrophils Absolute Auto 2.8 x10*3/uL (2.0-8.3); Neutrophils Percent Auto 57.8 % (45-73); Platelet Count 263 X10*3/uL (160-400); Red Blood Count 4.09 X10*6/uL (4.20-5.50); Red Cell Distribution Width 12.2 % (11.0-16.0); White Blood Count 4.9 X10*3/uL (4.8-10.8)
== END 2024-06-14 10:05 | disposition home or self-care (01) ==
LOC: HO.HHCL 10:04
PROVIDERS: Visit Provider Internal Medicine Geriatric Medicine
DX: Z79.01 Long term (current) use of anticoagulants (principal)
CPT/HCPCS: 36415; 85025

== ENCOUNTER 2024-11-10 10:06 | Emergency (ER) | payer OTHER, SELFPAY ==
--- NOTE | ~2024-11-10 | CT_ITS ---
CLINICAL HISTORY: fall with head strike, on thinners CT cervical spine without contrast Comparison: None Findings: Normal vertebral body alignment. There are minimal degenerative changes. No significant central canal narrowing. No acute fractures or dislocations. No acute findings on limited view of the intracranial contents. No cervical fluid collections or masses. Lung apices are clear. IMPRESSION: No acute cervical spine fracture. This document has been electronically signed by: Lauren Camilo MD on 11/10/2024 17:30:36
--- NOTE | ~2024-11-10 | CT_ITS ---
CLINICAL HISTORY: fall, head strike and on eliquis CT head without contrast Comparison: CT - BRAIN WO IV CONTRAST [id number] - 04/16/13 17:55 EDT Findings: No intra-axial mass, midline shift, hydrocephalus, or acute hemorrhage. Moderate brain atrophy. Moderate white matter disease. There is no sinus or mastoid fluid. The orbits are within normal limits. Right frontal scalp edema. No skull fracture. IMPRESSION: 1. No acute intracranial findings. This document has been electronically signed by: Lauren Camilo MD on 11/10/2024 17:35:21
[2024-11-10 10:31] VITALS: BP 132/69; PULSE 68; RESP 18; TEMP 36.6; O2SAT 96; BMI 21.1
[2024-11-10 11:53] LABS: MANUAL DIFF FLAG NO
[2024-11-10 11:54] LABS: Basophils Percent Auto 0.4 % (0-2); Eosinophils Absolute Auto 0.1 X10*3/uL (0.0-0.4); Eosinophils Percent Auto 1.5 % (0-4); Hematocrit 38.6 % (37.0-47.0); Hemoglobin 13.1 g/dl (12.0-16.0); Imm Gran Abs Auto 0.01 X10*3/uL (0.00-0.03); Imm Gran Pct Auto 0.2 % (0.0-0.4); Lymphocytes Absolute Auto 1.3 X10*3/uL (1.2-4.9); Lymphocytes Percent Auto 23.4 % (20-40); Mean Corpuscular HGB Conc 33.9 g/dl (31.0-35.0); Mean Corpuscular Hemoglobin 31.2 pg (27.0-33.0); Mean Corpuscular Volume 91.9 fL (80.0-98.0); Mean Platelet Volume 9.3 fL (9.4-12.3); Monocytes Absolute Auto 0.5 X10*3/uL (0.1-1.2); Monocytes Percent Auto 8.6 % (2-11); Neutrophils Absolute Auto 3.5 x10*3/uL (2.0-8.3); Neutrophils Percent Auto 65.9 % (45-73); Platelet Count 226 X10*3/uL (160-400); Red Cell Distribution Width 12.1 % (11.0-16.0); White Blood Count 5.4 X10*3/uL (4.8-10.8)
[2024-11-10 12:03] LABS: INTERNATIONAL NORM RATIO 1.2 (0.9-1.1); Prothrombin Time 13.6 SEC (10.9-12.4)
[2024-11-10 12:09] LABS: Anion Gap 10 (12-20); Blood Urea Nitrogen 13 mg/dL (9-16); Calcium 9.6 mg/dL (8.4-10.2); Carbon Dioxide 29 mmol/L (22-29); Chloride 106 mmol/L (96-108); Creatinine Clr Calc Pharmacy 49.8; Estimated Glomerular Filt Rate > 60; Glucose Random 105 mg/dL (60-115); Potassium 3.6 mmol/L (3.3-5.1); Sodium 141 mmol/L (135-145)
--- NOTE | 2024-11-10 13:12 | ED_ITS ---
HPI - General Adult General Chief complaint: Fall Stated complaint: Head Lac Fall 11/10/24 Time Seen by Provider: 11/10/24 13:02 Source: patient, family, RN notes reviewed and old records reviewed Mode of arrival: ambulatory Limitations: language barrier History of Present Illness ED Provider: Quyen HPI narrative: Patient is a 74-year-old Belgian speaking female with history of dementia, 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 Niece reports that patient lives with her brother and sister. Early this morning around 5am, brother heard her screaming in her room, when he went in to check on her he noticed she was bleeding from a head injury. Patient unable to provide any history due to dementia. MD complaint: head injury Onset (ago): hour(s) Location: head Treatments prior to arrival: none Related Data Home Medications ?Medication ?Instructions ?Recorded ?Confirmed donepezil 10 mg tablet 10 mg PO BEDTIME 12/26/21 04/09/23 memantine 10 mg tablet 10 mg PO BID 12/26/21 04/09/23 multivitamin (One Daily 1 tab PO DAILY 12/26/21 04/09/23 Multivitamin tablet) polyethylene glycol 3350 17 17 g PO BEDTIME 12/24/22 04/09/23 gram/dose oral powder (Miralax) trazodone 50 mg tablet 50 mg PO BEDTIME 03/15/23 04/09/23 Previous Rx's ?Medication ?Instructions ?Recorded apixaban 5 mg (74 tabs) tablets in See Rx Instructions .Route 12/25/22 a dose pack (Eliquis DVT-PE Treat .COMPLEX #74 ea 30D Start) Allergies Allergy/AdvReac Type Severity Reaction Status Date / Time Penicillins Allergy Mild Rash Verified 11/10/24 10:33 Review of Systems 2 Review of Systems: As per HPI Yes all other systems are reviewed and are negative Constitutional: Constitutional: Reports as per HPI Neurologic: Reports confusion Psychiatric: Psychiatric: Reports confusion [facility] Past Medical History Medical History (Updated 11/10/24 @ 16:07 by Edelmira Napier NP) Bilateral peroneal artery occlusion History of COVID-19 IBS (irritable bowel syndrome) Depression Elevated cholesterol GERD (gastroesophageal reflux disease) Barretts esophagus Osteopenia Dementia Surgical History (Updated 04/20/23 @ 14:52 by ONEYDA uMrguia) History of laparoscopic cholecystectomy (04/13/23) Hx of bilateral cataract extraction History of esophagogastroduodenoscopy (EGD) H/O colonoscopy Social History Social History Household Members: Family Housing: House Are you a primary rn managed care to a significant other at home: No Do you presently have visiting nurse or other home services: Yes ([employer]) Unable to assess alcohol history related to: Unknown Comment: vision poor due to cataracts but does not use any assistive gait device Patient Tobacco Use Status: Never used Tobacco Advance Directives: Yes Advance Directives on File: Yes Advance Directives Date on File: 04/13/23 Do you have a plan to hurt others: No Plan service: No Current occupational status: retired Physical Exam ED Vital Signs: Vital Signs - 24 hr 11/10/24 10:31 11/10/24 15:49 11/10/24 18:00 Temperature 98 F Pulse Rate 68 67 96 Respiratory Rate 18 16 16 Blood Pressure 132/69 Pulse Oximetry 96 95 Oxygen Delivery Method Room Air Room Air 11/10/24 20:00 11/10/24 22:00 11/11/24 00:22 Temperature 97.4 F Pulse Rate 87 55 57 Respiratory Rate 18 18 16 Blood Pressure 134/62 128/70 Pulse Oximetry 96 95 100 Oxygen Delivery Method Room Air Room Air Room Air BMI result Body Mass Index 21.1 Vital signs have been reviewed and appear to be correct. Blood pressure normal. Heart rate normal. Respiratory rate normal. Temperature normal. Oxygen saturation normal. Const General: cooperative, healthy appearing, no acute distress, alert, awake, Physically active and confusion Nutritional Appearance: thin Orientation/consciousness: oriented to person and confusion Limitations: behavioral limitations HENMT Head: Yes normocephalic and Yes contusion Head images: 2 1. contusion with 1-2mm laceration, no active bleeding Ears: external ears normal General nose exam: Normal external nose present Face and sinus: Yes face symmetric Mouth: oropharynx normal and moist mucous membranes Throat: Yes uvula midline Eyes Pupils: Equal, round and reactive pupils present Neck Neck: Yes normal visual inspection and Yes supple Resp Effort & Inspection: normal respiratory effort and able to speak in complete sentences Auscultation: clear to auscultation bilaterally Cardio Rate: regular rate Rhythm: regular rhythm Heart sounds: S1 normal heart sound present and S2 normal heart sound present GI Palpation (GI): Soft to palpation and nontender Auscultation: normoactive bowel sounds General: Yes no CVA tenderness Back/Spine/Pelvis Back: no CVA tenderness Skin General skin exam: elasticity normal and turgor normal Neuro General: oriented to person, moves all extremities, no focal motor deficits, CN's II-XI intact bilaterally and confusion Cranial nerves: Yes Equal, round and reactive pupils present Extrem General: Yes full ROM, Yes no pedal edema and Yes no calf tenderness Course Course Course Narrative: 4:00 p.m. receive sign-out with the patient in stable condition pending CT. 5:[address] findings, no acute process. I reviewed the findings with the family who are at the bedside. They feel comfortable taking the patient home. Will ambulate patient prior to discharge. 8:00 p.m. family continues to be at the bedside. Patient continues to be sleepy but arousable. She is not awake enough to be ambulatory and safe to be discharged home at this time. She will continue to be monitored. 10:00 p.m. patient resting comfortably. She continues to be arousable but sleepy. She will continue to be monitored and family will return in the morning to pick her up for discharge home. In case patient may need additional resources, case management will be consulted. November 11, 2024, 2:00 a.m.. Patient signed out in stable condition with reassessment pending and possible case management evaluation to Dr. Schaefer. Medications Administered Discontinued Medications Generic Name Dose Route Start Last Admin Trade Name Freq PRN Reason Stop Dose Admin Diphtheria/Tetanus/Acell Pertussis 0.5 ml 11/10/24 13:37 11/10/24 17:26 Diphth,Pertus(Acell),Tet Adult 0.5 Ml Syringe IM 11/10/24 13:38 0.5 ml .ONCE ONE Administration Lorazepam 1 mg 11/10/24 13:27 11/10/24 14:08 Lorazepam 2 Mg/Ml Vial IVPUSH 11/10/24 13:28 1 mg STAT STA Administration Lorazepam 1 mg 11/10/24 14:35 11/10/24 15:09 Lorazepam 2 Mg/Ml Vial IVPUSH 11/10/24 14:36 1 mg ONCE ONE Administration Medical Decision Making Medical Decision Making [facility] Narrative: Patient is a 74-year-old Belgian speaking female with history of dementia, 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 On exam patient is awake, A+Ox3, VS WNL, afebrile, normal neurological exam without focal deficits, physical exam findings as above. Given reported symptoms and physical exam findings, initial differential includes but is not limited to ICH, skull or cervical vertebral fracture or subluxation, contusion, laceration. CT unable to obtain CT head/c-spine as patient uncooperative. Will medicated with lorazepam to obtain CT scans as patient is anticoagulated. Labs unremarkable, troponin negative. Tdap ordered. Patient signed out to [facility] Fuentes pending CT results. Differential Diagnosis Differential Diagnoses: The differential diagnosis associated with the presentation includes As per [facility] Admission/Observation Consideration of admission/observation: Escalation of care including admission/observation considered Patient would have been admitted to the hospital had their work up had any findings where hospital admission was appropriate and their clinical presentation warranted hospital admission. Lab Data [facility] Lab Attestation statement: I reviewed the patient's lab results. As per [facility] 11/10/24 11:34 11/10/24 11:34 Labs: Lab Results 11/10/24 11/10/24 11/10/24 Range/Units 11:34 14:06 18:29 WBC 5.4 (4.8-10.8) X10*3/uL RBC 4.20 (4.20-5.50) X10*6/uL Hgb 13.1 (12.0-16.0) g/dl Hct 38.6 (37.0-47.0) % MCV 91.9 (80.0-98.0) fL MCH 31.2 (27.0-33.0) pg MCHC 33.9 (31.0-35.0) g/dl RDW 12.1 (11.0-16.0) % Plt Count 226 (160-400) X10*3/uL MPV 9.3 L (9.4-12.3) fL Immature Gran % (Auto) 0.2 (0.0-0.4) % Neut % (Auto) 65.9 (45-73) % Lymph % (Auto) 23.4 (20-40) % [place] % (Auto) 8.6 (2-11) % Eos % (Auto) 1.5 (0-4) % Baso % (Auto) 0.4 (0-2) % Lymph # (Auto) 1.3 (1.2-4.9) X10*3/uL [place] # (Auto) 0.5 (0.1-1.2) X10*3/uL Eos # (Auto) 0.1 (0.0-0.4) X10*3/uL Baso # (Auto) 0.0 (0.0-0.2) X10*3/uL Abs Immat Gran (auto) 0.01 (0.00-0.03) X10*3/uL Absolute Neuts (auto) 3.5 (2.0-8.3) x10*3/uL Absolute Nucleated RBC 0.000 (0.0-0.012) X10*3/uL Nucleated RBC % (auto) 0.0 (0.0-0.2) /100WBC PT 13.6 H (10.9-12.4) SEC INR 1.2 H (0.9-1.1) Sodium 141 (135-145) mmol/L Potassium 3.6 (3.3-5.1) mmol/L Chloride 106 (96-108) mmol/L Carbon Dioxide 29 (22-29) mmol/L Anion Gap 10 L (12-20) BUN 13 (9-16) mg/dL Creatinine 0.70 (0.5-1.4) mg/dL Estim Creat Clear Calc 49.8 Estimated GFR > 60 Random Glucose 105 (60-115) mg/dL Calcium 9.6 D (8.4-10.2) mg/dL Troponin I High Sens < 2.7 (<3.5-17.0) ng/L Influenza Type A (PCR) NEGATIVE (Negative) Influenza Type B (PCR) NEGATIVE (Negative) RSV RNA Qual (PCR) NEGATIVE (Negative) SARS-CoV-2 RNA (RT-PCR) NEGATIVE (Negative) External Record Review External record reviewed: Inpatient record, Office record and Outpatient record Discharge Plan Discharge Clinical Impression: Contusion of head, Fall Patient Disposition: Still a Patient Instructions: Diphtheria/Acellular Pertussis/Tetanus Vaccine (By injection), Fall Prevention for Older Adults (ED), Contusion in Adults (ED), Hematoma (ED) Additional Instructions: You have been evaluated in the emergency department today for head injury. Your CT scan did not show signs of bleed or fractures in your head. Your Tdap (tetanus) was updated at today's visit. Please schedule an appointment with for follow-up with your primary care provider as soon as possible. Return to the emergency department if you experience worsening or uncontrolled pain, vision changes, recurrent vomiting, difficulty with normal activities, abnormal behavior, difficulty walking, numbness, weakness, or any other concerning symptoms. Prescriptions: No Action polyethylene glycol 3350 [Miralax] 17 gram/dose Powder 17 g PO BEDTIME Eliquis DVT-PE Treat 30D Start 5 mg (74 tabs) tablets,dose pack See Rx Instructions .ROUTE .COMPLEX Qty: 74 0RF Rx Instructions: 2 tabs [10 mg] twice daily for 7 days, then 1 tab [5 mg] twice daily donepezil 10 mg tablet 10 mg PO BEDTIME multivitamin [One Daily Multivitamin] Tablet 1 tab PO DAILY memantine 10 mg tablet 10 mg PO BID trazodone 50 mg tablet 50 mg PO BEDTIME Print Language: Belgian
--- NOTE | 2024-11-10 13:13 | ECG_ITS ---
Test Reason : AMS Blood Pressure : */* mmHG Vent. Rate : 56 BPM Atrial Rate : 56 BPM P-R Int : 194 ms QRS Dur : 68 ms QT Int : 404 ms P-R-T Axes : 49 21 42 degrees QTcB Int : 389 ms Sinus bradycardia Septal infarct , age undetermined Abnormal ECG When compared with ECG of 14-Jun-2017 18:37, Septal infarct is now Present Non-specific change in ST segment in Anterior leads Referred By: Edelmira Napier Electronically Signed By: Jesus Tomas
--- OUTSIDE RECORDS SUMMARY | 2024-11-10 13:20 | XMS_ITS | Encounter Summary ---
Author Organization [employer] Address [address] [place] [address] Care Team Providers Care Switch Crew Supervisor Name Role Phone Name, Aric FLOREZ Primary Care Provider [phone] Encounter Details Date Type Department Care Team ([facility] Contact Info) Description 02/25/2023 Abstract [facility] [address] [place] [phone] NameAric MD [address] [place] [address] [phone] Social History Tobacco Use Types Packs/Day Years Used Date Smoking Tobacco: Never Smokeless Tobacco: Never Alcohol Use Standard Drinks/Week Comments Never 0 (1 standard drink = 0.6 oz pur e alcohol) Depression Answer Date Recorded Patient Health Questionnaire-9 Score 0 11/19/2022 Depression Answer Date Recorded Patient Health Questionnaire-2 Score 0 11/19/2022 Comments Unknown Sex and Gender Information Value Date Recorded Sex Assigned at Female 08/03/2022 10:17 AM EDT Legal Sex Female 10:17 AM EDT Gender Identity Female 08/03/2022 10:17 AM EDT Sexual Orientation Choose not to disclose 2021 10:17 AM EDT COVID-19 Exposure Response Date Recorded In the last 10 days, have yo u been in contact with someone who was confirmed or suspected to have Coronavirus/COVID-19? No / Unsure 01/27/2023 9:36 AM EDT documented as of this encounter Plan of Treatment Upcoming Encounters Date Type Department Care Team ([facility] Contact Info) Description 01/19/2025 10:15 AM EDT Office Visit [facility] [address] [place] [phone] NameAric MD [address] [place] [address] documented as of this encounter Procedures Procedure Name Priority Date/Time Associated Diagnosis Comments COLONOSCOPY Routine 09/08/2017 11:20 AM EST documented in this encounter Results * Hm Colonoscopy (09/08/2017 11:20 AM EST) Colonoscopy Normal Normal Narrative Sangeetha Winston - 09/08/2017 11:20 AM EST Recommended 10 year follow up Historical Provider HEALTH MAINTENANCE Final Result documented in this encounter Visit Diagnoses Not on filedocumented in this encounter Additional Health Concerns Assessment Noted Time PHQ-9 Depression Total Score: 0 11/19/19 23 9:27 AM EST documented as of this encounter Care Teams Switch Crew Supervisor Relationship Specialty Start Date End Date Name, MD Aric [address] [place] [address] PCP - General Family Medicine 06/01/22 documented as of this encounter
--- OUTSIDE RECORDS SUMMARY | 2024-11-10 13:20 | XMS_ITS | Clinical Summary ---
Author Organization [employer] Address [address] [facility] 7[address] [place] [address] Care Team Providers Care Automobile Tire Builder Name Role Phone Name, Aric FLOREZ Primary Care Provider [phone] Allergies Active Allergy Reactions Criticality Noted Date Comments Penicillin V 12/17/2010 Other reaction(s): unspecified Penicillins Rash Low 04/13/2023 Medications memantine (Namenda) 10 MG tablet Take 10 mg by mouth 2 times daily. 022 Active Multiple Vitamin (Multi-Vitamin ) tabletIndicati ons:Severe dementia without behavioral disturbance, psychotic disturbance, mood disturbance, or anxiety, unspecified dementia type (CMS/HCC) take 1 tablet by oral route every day with food 30 tablet 11 023 Active diazePAM (Valium) 2 MG tablet Take 1 tablet (2 mg) by mouth See administration instructions for 1 day. 20 minutes prior to eye exam 1 tablet 023 Active donepezil (Aricept) 10 MG tablet Take 1 tablet (10 mg) by mouth at bedtime. 30 tablet 3 023 Active polyethylene glycol, PEG, 3350 (GaviLAX) 17 GM/SCOOP powder Mix 17g (1 capful) in 8 ounces of water and take by mouth every day 510 g 1 024 Active traZODone (Desyrel) 50 MG tabletIndicati ons:Insomnia, unspecified type Take 1 tablet (50 mg) by mouth at bedtime. 30 tablet 3 024 Active Eliquis 5 MG tabletIndicati ons:Hx pulmonary embolism TAKE 1 TABLET BY MOUTH TWICE DAILY 60 tablet 025 Active Eliquis 5 MG tabletIndicati ons:Hx pulmonary embolism TAKE 1 TABLET BY MOUTH TWICE DAILY 60 tablet 024 2024 Discontinued Active Problems Problem Noted Date Diagnosed Date History of cholecystectomy 06/12/2024 Overview (06/12/2024): April of last year Bilateral pulmonary embolism 06/02/2023 Left leg DVT 06/02/2023 Osteopenia 06/02/2023 Recurrent biliary colic 06/02/2023 Weight loss 06/02/2023 Calculus of gallbladder with out cholecystitis without obstruction 03/25/2023 Hx pulmonary embolism 01/20/2023 Assessment & Plan (01/20/2023 1:59 PM EDT): Patient was admitted to [facility] for a pulmonary embolism. [facility]: Plan of Treatment: take apixaban [ELIQUIS] 5 mg tabs as follows: - 2 tabs [total 10 mg] twice daily for 7 days, then - 1 tab [5 mg] twice daily indefinitely Ordered apixaban 5 mg PO BID Made hospital FU visit with PCP on 01/27 Insomnia 01/19/2023 Assessment & Plan (01/20/2023 1:51 PM EDT): Due to this patients dementia I thought it was best to start her on 50 mg trazodone to see if this would help with her sleep. Potentially try mirtazapine 7.5 mg if the trazodone has no positive effect on her sleep. COVID-19 11/19/2022 Prediabetes 11/18/2017 Assessment & Plan (01/20/2023 1:51 PM EDT): Glucose 84 A1C 5.8 Osteopenia determined by x-ray 11/18/2017 Graves's esophagus 11/18/2017 Vitamin D deficiency 07/25/2015 High cholesterol 07/25/2015 Irritable bowel syndrome 07/25/2015 GERD (gastroesophageal reflux disease) 5 Depressive disorder 07/25/2015 Dementia 07/25/2015 Resolved Problems Problem Noted Date Diagnosed Date Resolved Date Anemia 01/19/2023 09/20/2024 Assessment & Plan (01/20/2023 1:54 PM EDT): Patient appears to have mild anemia. Component Ref Range & Units 4 wk ago (12/23/22) 1 yr ago (11/12/21) 1 yr ago (03/27/21) White Blood Count 4.8 - 10.8 X10*3/uL 9.9 Red Blood Count 4.20 - 5.50 X10*6/uL 3.73??Low?? Hemoglobin 12.0 - 16.0 g/dl 11.8??Low?? 12.7 R 13.0 R Hematocrit 37.0 - 47.0 % 35.1??Low?? 37.8 R 38.6 R Mean Corpuscular Volume 80.0 - 98.0 fL 94.1 Mean Corpuscular Hemoglobin 27.0 - 33.0 pg 31.6 Mean Corpuscular HGB Conc 31.0 - 35.0 g/dl 33.6 Red Cell Distribution Width 11.0 - 16.0 % 11.7 If trazodone does not work for her sleep addressing her anemia may have some positive effect. Iron panel study would be helpful. Iron deficiency anemia is know to cause sleep issues. Encounters Date Type Department Care Team Description 11/10/2024 Orders Only GENERIC EXTERNAL DATA DEPARTMENT Provider, Generic External Data 10/24/2024 Refill [facility] [address] [place] [address] Aric Lobato MD Hx pulmonary embolism 09/20/2024 10:45 AM EST Office Visit [facility] [address] [place] [phone] NameAric MD Severe dementia without behavioral disturbance, psychotic disturbance, mood disturbance, or anxiety, unspecified dementia type (CMS/HCC) (Primary Dx); History of DVT (deep vein thrombosis); Encounter for immunization; Insomnia, unspecified type 09/20/2024 Travel 09/19/2024 Telephone [facility] [address] [place], [place] [phone] Josefa Dash MA Chart Prep 2024 Refill [facility] [address] [place] [address] Aric Lobato MD Hx pulmonary embolism 08/17/2024 Refill [facility] [address] [place] [phone] Name, MD Aric Insomnia, unspecified type from Last 3 Months Immunizations Name Administration Dates Next Due Influenza High-dose Quadriva lent Preservative Free 07/17/2022 Influenza injectable quadriv alent IIV4 with preservative 07/27/2016 Influenza injectable quadriv alent preservative free 10/27/2021,12/27/2018,08/05/2017,06/28 Influenza, High Dose Seasona l, Preservative Free 06/12/2024 Influenza, IIV3, injectable 07/24/2011 Influenza, Split (incl. juan alberto fied surface antigen) 09/21/2013,06/09/2012 Pfizer Covid-19 Vaccine 12+ 09/20/2024 Pfizer Covid-19 Vaccine 12+ Bivalent 07/17/2022 Pneumococcal Conjugate PCV 13 09/24/2016, 015 Pneumococcal Polysaccharide PPSV23 11/18/2017 TD (adult), 2 Lf tetanus tox oid, preservative free, adsorbed 07/31/2004 Tdap 09/20/2024,09/01/2012 Zoster, live 07/25/2015 Family History Medical History Relation Name Comments Dementia Sister Relation Name Status Comments Sister Social History Tobacco Use Types Packs/Day Years Used Date Smoking Tobacco: Never Smokeless Tobacco: Never Tobacco Cessation:Counseling Given: Not Answered Alcohol Use Standard Drinks/Week Comments Never 0 (1 standard drink = 0.6 oz pur e alcohol) Depression Answer Date Recorded Patient Health Questionnaire-9 Score 0 11/19/2022 Housing Stability Answer Date Recorded What is your housing situation today? I have jarred mckeon 08/05/[address] you li ve. Do you have problems with any of the following? None of the above 08/05/2023 Food Insecurity Answer Date Recorded Within the past 12 months, y ou worried that your food would run out before you got money to buy more: Never True 08/05/2023 Within the past 12 months,th e food you bought just didn't last and you didn't have enough money to get more: Never True 11/2022 Transportation Answer Date Recorded In the past 12 months, has l ack of transportation kept you from medical appts, meetings, work or from getting things needed for daily living? No 08/05/2023 Utilities Answer Date Recorded In the past 12 months, has t he electric, gas, oil or water company threatened to shut off services in your home? No 08/05/2023 Depression Answer Date Recorded Patient Health Questionnaire-2 Score 0 11/19/2022 Comments Unknown Sex and Gender Information Value Date Recorded Sex Assigned at Female 08/03/2022 10:17 AM EDT Legal Sex Female 10:17 AM EDT Gender Identity Female 08/03/2022 10:17 AM EDT Sexual Orientation Choose not to disclose 2021 10:17 AM EDT Last Filed Vital Signs Vital Sign Reading Time Taken Comments Blood Pressure 123/85 09/20/2024 10:50 AM EST Pulse 86 09/20/2024 10:50 AM EST Temperature 36.1 ??C (96.9 ??F) 09/20/2024 10:[address] Respiratory Rate 21 09/20/2024 10:50 AM EST Oxygen Saturation 98% 09/20/2024 10:50 AM EST Inhaled Oxygen Concentration - - Weight 49 kg (108 lb) 09/20/2024 10:50 AM EST Height 152.4 cm (5') 03/25/2023 9:31 AM EDT Body Mass Index 21.09 03/25/2023 9:31 AM EDT Plan of Treatment Upcoming Encounters Date Type Department Care Team (Late st Contact Info) Description 01/19/2025 10:15 AM EDT Office Visit [facility] [address] [place] [phone] Name, MD Aric [address] [place] [phone] Health Maintenance Due Date Last Done Comments CT Colonography 1949 FIT DNA/Cologuard 1949 FIT 1949 FOBT 1950 Sigmoidoscopy 1949 Alcohol/Substance Use Screening 1961 Zoster Vaccines (2 of 3) 09/19/2015 07/25/2015 Depression Screening 11/19/2023 11/19/2022, 11/19/19 23 SDOH Screening 11/19/2023 11/19/2022 Diabetes: Hemoglobin A1C 01/21/2024 023, 11/12/2021, 03/27/2021 RSV Patients and Patients Aged 60 years or older (1 - 1-dose 75+ series) 2024 Tobacco Screening 09/20/2025 09/20/2024 Colonoscopy 09/08/2027 09/08/2017 Colorectal Cancer Screening 09/08/2027 DTaP/Tdap/Td Vaccines (3 - Td or Tdap) 09/20/2034 09/20/2024, 09/01/2012, 07/31/2004 Pneumococcal Vaccine: 50+ Years Completed 11/18/2017, 09/24/2016, 07/25/2015 Hepatitis C Screening Completed 11/12/2021 Influenza Vaccine Completed 06/12/2024, , 10/27/2021, Additional history exists COVID-19 Vaccine Completed 09/20/2024, , 10/27/2021, Additional history exists HIB Vaccines Aged Out No longer eligi ble based on patient's age to complete this topic HPV Vaccines Aged Out No longer eligi ble based on patient's age to complete this topic Hepatitis A Vaccines Aged Out No long er eligible based on patient's age to complete this topic Hepatitis B Vaccines Aged Out No long er eligible based on patient's age to complete this topic IPV Vaccines Aged Out No longer eligi ble based on patient's age to complete this topic Meningococcal Vaccine Aged Out No lexus kobi eligible based on patient's age to complete this topic RSV under 20 months Aged Out No longe r eligible based on patient's age to complete this topic Rotavirus Vaccines Aged Out No longer eligible based on patient's age to complete this topic Procedures Procedure Name Priority Date/Time Associated Diagnosis Comments BASIC METABOLIC PANEL Routine 11/10/2024 11:34 AM EST PROTHROMBIN TIME-INR Routine 11/10/2024 11:34 AM EST CBC WITH AUTO DIFFERENTIAL Routine 11/10/2024 11:34 AM EST POCT GLYCATED HEMOGLOBIN, TOTAL Routine 01/20/2023 9:21 AM EDT Prediabetes ZZZ HISTORICAL HEPATITIS C AB W/REFL TO HCV RNA, QN, PCR Routine 11/12/2021 10:56 AM EST COLONOSCOPY Routine 09/08/2017 11:20 AM EST from Last 3 Months or Most Recently Relevant to Health Maintenance Results * (ABNORMAL) CBC auto differential (11/10/2024 11:34 AM EST) White Blood Count 5.4 4.8 - 10.8 X10*3/uL [facility] Red Blood Count 4.20 4.20 - 5.50 X10*6/uL [facility] Hemoglobin 13.1 12.0 - 16.0 g/dl [facility] Hematocrit 38.6 37.0 - 47.0 % [facility] Mean Corpuscular Volume 91.9 80.0 - 98.0 fL [facility] Mean Corpuscular Hemoglobin 31.2 27.0 - 33.0 pg [facility] Mean Corpuscular HGB Conc 33.9 31.0 - 35.0 g/dl [facility] Red Cell Distribution Width 12.1 11.0 - 16.0 % [facility] Platelet Count 226 160 - 400 X10*3/uL [facility] Mean Platelet Volume 9.3(L) 9.4 - 12.3 fL [facility] Neutrophils Percent Auto 65.9 45 - 73 % [facility] Imm Gran Pct Auto 0.2 0.0 - 0.4 % [facility] Lymphocytes Percent Auto 23.4 20 - 40 % [facility] Monocytes Percent Auto 8.6 2 - 11 % [facility] Eosinophils Percent Auto 1.5 0 - 4 % [facility] Basophils Percent Auto 0.4 0 - 2 % [facility] NRBC Pct Auto 0.0 0.0 - 0.2 /100WBC [facility] Neutrophils Absolute Auto 3.5 2.0 - 8.3 x10*3/uL [facility] Imm Gran Abs Auto 0.01 0.00 - 0.03 X10*3/uL [facility] Lymphocytes Absolute Auto 1.3 1.2 - 4.9 X10*3/uL [facility] Monocytes Absolute Auto 0.5 0.1 - 1.2 X10*3/uL [facility] Eosinophils Absolute Auto 0.1 0.0 - 0.4 X10*3/uL [facility] Basophils Absolute Auto 0.0 0.0 - 0.2 X10*3/uL [facility] NRBC Abs Auto 0.000 0.0 - 0.012 X10*3/uL [facility] 11/10/2024 11:3 4 AM EST 11/10/2024 11:50 AM EST Generic External Data Provider LAB BLOOD ORDERAB LES Final Result Performing Organization Address [facility] Co de Phone Number [facility] [address] [place] [phone] * (ABNORMAL) Prothrombin Time-INR (11/10/2024 11:34 AM EST) Prothrombin Time 13.6(H) 10.9 - 12.4 SEC [facility] INTERNATIONAL NORM RATIO 1.2(H) 0.9 - 1.1 [facility] Comment:INTERNATIONAL NORMAL IZED RATIO (INR) REFERENCE RANGES Reference RangeFor patients not on anticoagulant therapy: 0.9 - 1.1INR ranges for oral anticoagulanttherapy:For prevention and treatment of venous thrombosis and pulmonary embolism: 2.0 - 3.0For acute myocardial infarction with aspirin therapy: 2.0 - 3.0For acute myocardial infarction without aspirin therapy: 3.0 - 4.0For patients with mechanical prosthetic heart valves: 2.5 - 3.5 11/10/2024 11:3 4 AM EST 11/10/2024 11:50 AM EST Generic External Data Provider LAB BLOOD ORDERAB LES Final Result Performing Organization Address [facility] Co de Phone Number [facility] [address] [place] [phone] * (ABNORMAL) Basic Metabolic Panel (11/10/2024 11:34 AM EST) Sodium 141 135 - 145 mmol/L [facility] Potassium 3.6 3.3 - 5.1 mmol/L [facility] Chloride 106 96 - 108 mmol/L [facility] Carbon Dioxide 29 22 - 29 mmol/L [facility] Anion Gap 10(L) 12 - 20 [facility] Urea Nitrogen (BUN) 13 9 - 16 mg/dL [facility] Creatinine, Serum 0.70 0.5 - 1.4 mg/dL [facility] Creatinine Clr Calc Pharmacy 49.8 [facility] Comment:Provided height and weight: 152.4 cm,49 kg.eGFR (calculated from the MDRD study equation) and eCrCl(calculated from the Cockcroft-Gault equation) are based ondifferent parameters and may not yield comparable results.If eCrCl result is absurd, please check patient'sheight/weight. Estimated Glomerular Filt Rate >60 [facility] Comment:Chronic Kidney Disea se: Estimated GFR < 60 mL/min/1.27p3Tjhwrg Kidney Disease: Estimated GFR < 15 mL/min/1.73m2 Glucose 105 60 - 115 mg/dL [facility] Calcium 9.6 8.4 - 10.2 mg/dL [facility] 11/10/2024 11:3 4 AM EST 11/10/2024 11:50 AM EST us Generic External Data Provider LAB BLOOD ORDERAB LES Final Result [facility] [address] [place] [address] [phone] * POCT A1C (01/20/2023 9:21 AM EDT) Hemoglobin A1C 5.8 4.0 - 6.0 % QC Media Lot # [id number] Lot# Expiration Date Blood 01/20/2023 9:21 AM EDT Shree Wall AGNP POINT OF CARE TEST ENTER/EDIT ORDERABLES Final Result * HEPATITIS C AB W/REFL TO HCV RNA, QN, PCR (11/12/2021 10:56 AM EST) HEPATITIS C ANTIBODY NON-REACT ANKIT NON-REACT ANKIT [facility] INDEX 0.01 <1.00 [facility] Comment: ?? HCV antibody was non-reactive. There is no laboratory ?? evidence of HCV infection. ?? In most cases, no further action is required. However, if recent HCV exposure is suspected, a test for HCV RNA (test code 01806) is suggested. ?? For additional information please refer to http://[employer].Cnekt/faq/WIR34h7 (This link is being provided for informational/ educational purposes only.) ?? 11/12/2021 10:5 6 AM EST Kylee Green SEWER SEPARATION DESIGNER HISTORICAL/NON ORDERABLE LABS Final Result [facility] [address] * Hm Colonoscopy (09/08/2017 11:20 AM EST) Colonoscopy Normal Normal Narrative Sangeetha Winston - 09/08/2017 11:20 AM EST Recommended 10 year follow up Historical Provider HEALTH MAINTENANCE Final Result from Last 3 Months or Most Recently Relevant to Health Maintenance [place] [address] [place] [address] - [employer] Care Teams Automobile Tire Builder Relationship Specialty Start Date End Date Name, MD Aric [address] [place] [address] PCP - General Family Medicine 06/01/22
--- OUTSIDE RECORDS SUMMARY | 2024-11-10 13:20 | XMS_ITS | Encounter Summary ---
Author Organization [employer] Address [address] [facility] [address] [place] [address] Care Team Providers Care Family Practice Medical Doctor Name Role Phone Name, Aric FLOREZ Primary Care Provider [phone] Encounter Details Date Type Department Care Team (Late st Contact Info) Description 11/10/2024 Orders Only GENERIC EXTERNAL DATA DEPARTMENT Provider, Generic External Data Social History Tobacco Use Types Packs/Day Years Used Date Smoking Tobacco: Never Smokeless Tobacco: Never Alcohol Use Standard Drinks/Week Comments Never 0 (1 standard drink = 0.6 oz pur e alcohol) Depression Answer Date Recorded Patient Health Questionnaire-9 Score 0 11/19/2022 Housing Stability Answer Date Recorded What is your housing situation today? I have jarredjogre mckeon 08/05/[address] you [...] not to disclose 2021 10:17 AM EDT documented as of this encounter Plan of Treatment Upcoming Encounters Date Type Department Care Team (Late st Contact Info) Description 01/19/2025 10:15 AM EDT Office Visit [facility] [address] [place] [address] Name, MD Aric [address] [place] [address] documented as of this encounter Procedures Procedure Name Priority Date/Time Associated Diagnosis Comments CBC WITH AUTO DIFFERENTIAL Routine 11/10/2024 11:34 AM EST PROTHROMBIN TIME-INR Routine 11/10/2024 11:34 AM EST BASIC METABOLIC PANEL Routine 11/10/2024 11:34 AM EST documented in this encounter Results * (ABNORMAL) Basic Metabolic Panel (11/10/2024 11:34 AM EST) Sodium 141 135 - 145 mmol/L [facility] Potassium 3.6 3.3 - 5.1 mmol/L [facility] Chloride 106 96 - 108 mmol/L [facility] Carbon Dioxide 29 22 - 29 mmol/L [facility] Anion Gap 10(L) 12 - 20 [facility] Urea Nitrogen (BUN) 13 9 - 16 mg/dL [facility] Creatinine, Serum 0.70 0.5 - 1.4 mg/dL [facility] Creatinine Clr Calc Pharmacy 49.8 [facility] Comment:Provided height and weight: 152.4 cm,49 kg.eGFR (calculated from the MDRD study equation) and eCrCl(calculated from the Cockcroft-Gault equation) are based ondifferent parameters and may not yield comparable results.If eCrCl result is absurd, please check patient'sheight/weight. Estimated Glomerular Filt Rate >60 [facility] Comment:Chronic Kidney Disea se: Estimated GFR < 60 mL/min/1.98y7Itfiii Kidney Disease: Estimated GFR < 15 mL/min/1.73m2 Glucose 105 60 - 115 mg/dL [facility] Calcium 9.6 8.4 - 10.2 mg/dL [facility] 11/10/2024 11:3 4 AM EST 11/10/2024 11:50 AM EST Generic External Data Provider LAB BLOOD ORDERAB LES Final Result Performing Organization Address [facility] Co de Phone Number [facility] [address] [place] [phone] * (ABNORMAL) Prothrombin Time-INR (11/10/2024 11:34 AM EST) Prothrombin Time 13.6(H) 10.9 - 12.4 SEC [facility] INTERNATIONAL NORM RATIO 1.2(H) 0.9 - 1.1 [facility] Comment:INTERNATIONAL NORMAL IZED RATIO (INR) [...] 4 AM EST 11/10/2024 11:50 AM EST [employer] External Data Provider LAB BLOOD ORDERAB LES Final Result Performing Organization Address [facility] Co de Phone Number [facility] [address] [place] [phone] * (ABNORMAL) CBC auto differential (11/10/2024 11:34 AM EST) White Blood Count 5.4 4.8 - 10.8 X10*3/uL [facility] Red Blood Count 4.20 4.20 - 5.50 X10*6/uL [facility] Hemoglobin 13.1 12.0 - 16.0 g/dl [facility] Hematocrit 38.6 37.0 - 47.0 % [facility] Mean Corpuscular Volume 91.9 80.0 - 98.0 fL [facility] Mean Corpuscular Hemoglobin 31.2 27.0 - 33.0 pg [facility] Mean Corpuscular HGB Conc 33.9 31.0 - 35.0 g/dl [facility] Red Cell Distribution Width 12.1 11.0 - 16.0 % [facility] Platelet Count 226 160 - 400 X10*3/uL [facility] Mean Platelet Volume 9.3(L) 9.4 - 12.3 fL [facility] Neutrophils Percent Auto 65.9 45 - 73 % [facility] Imm Gran Pct Auto 0.2 0.0 - 0.4 % [facility] Lymphocytes Percent Auto 23.4 20 - 40 % [facility] Monocytes Percent Auto 8.6 2 - 11 % [facility] Eosinophils Percent Auto 1.5 0 - 4 % [facility] Basophils Percent Auto 0.4 0 - 2 % [facility] NRBC Pct Auto 0.0 0.0 - 0.2 /100WBC [facility] Neutrophils Absolute Auto 3.5 2.0 - 8.3 x10*3/uL [facility] Imm Gran Abs Auto 0.01 0.00 - 0.03 X10*3/uL [facility] Lymphocytes Absolute Auto 1.3 1.2 - 4.9 X10*3/uL [facility] Monocytes Absolute Auto 0.5 0.1 - 1.2 X10*3/uL [facility] Eosinophils Absolute Auto 0.1 0.0 - 0.4 X10*3/uL [facility] Basophils Absolute Auto 0.0 0.0 - 0.2 X10*3/uL [facility] NRBC Abs Auto 0.000 0.0 - 0.012 X10*3/uL [facility] 11/10/2024 11:3 4 AM EST 11/10/2024 11:50 AM EST us Generic External Data Provider LAB BLOOD ORDERAB LES Final Result [facility] [address] [place] [address] [phone] documented in this encounter Visit Diagnoses Not on filedocumented in this encounter Additional Health Concerns Assessment Noted Time PHQ-9 Depression Total Score: 0 11/19/19 23 9:27 AM EST documented as of this encounter Care Teams Family Practice Medical Doctor Relationship Specialty Start Date End Date Name, MD Aric [address] [place] [address] PCP - General Family Medicine 06/01/22 documented as of this encounter
--- OUTSIDE RECORDS SUMMARY | 2024-11-10 13:20 | XMS_ITS | Encounter Summary ---
Author Organization [employer] Address [address] [place] [address] [address] [place] [address] Care Team Providers Care Plumber Apprentice Name Role Phone Name, Aric FLOREZ Primary Care Provider [phone] Reason for Visit * Reason Comments Med Refill Encounter Details Date Type Department Care Team (Late st Contact Info) Description 04/30/2023 Refill [facility] [address] [place] [phone] [facility] [address] [place], [place] [phone] Social History Tobacco Use Types Packs/Day Years [...] Description 01/19/2025 10:15 AM EDT Office Visit [facility] [address] [place] [address] [phone] Name, MD Aric [address] [place] [phone] documented as of this encounter Visit Diagnoses Not on filedocumented in this encounter Additional Health Concerns Assessment Noted Time PHQ-9 Depression Total Score: 0 11/19/19 23 9:27 AM EST documented as of this encounter Care Teams Plumber Apprentice Relationship Specialty Start Date End Date Name, MD Aric [address] [place] [address] PCP - General Family Medicine 06/01/22 documented as of this encounter
--- OUTSIDE RECORDS SUMMARY | 2024-11-10 13:20 | XMS_ITS | Encounter Summary ---
Author Organization [employer] Address [address] [facility] [address] [place] [address] Care Team Providers Care Jailer Name Role Phone Name, Aric FLOREZ Primary Care Provider [phone] Reason for Visit * Reason Comments Med Refill Encounter Details Date Type Department Care Team ([facility] st Contact Info) Description 10/24/2024 Refill [facility] [address] [place] [address] Name, MD Aric [address] [place], [place] [phone] Hx pulmonary embolism Social History Tobacco Use Types Packs/Day Years [...] Description 01/19/2025 10:15 AM EDT Office Visit [facility] [address] [place] [phone] Name, MD Aric [address] [place] [phone] documented as of this encounter Visit Diagnoses Diagnosis Hx pulmonary embolism documented in this encounter Additional Health Concerns Assessment Noted Time PHQ-9 Depression Total Score: 0 11/19/19 23 9:27 AM EST documented as of this encounter Care Teams Jailer Relationship Specialty Start Date End Date Name, MD Aric [address] [place] [phone] PCP - General Family Medicine 06/01/22 documented as of this encounter
--- OUTSIDE RECORDS SUMMARY | 2024-11-10 13:20 | XMS_ITS | Encounter Summary ---
Author Organization [employer] Address [address] [facility] 7t [place] [address] Care Team Providers Care Final Inspector Name Role Phone Name, Aric FLOREZ Primary Care Provider [phone] Reason for Visit * Reason Onset Date Comments FYI 01/12/2023 Encounter Details Date Type Department Care Team (Late st Contact Info) Description 01/12/2023 Telephone [facility] MEDICINE [address] [place] [address] Name, MD Aric [address] [place], [place] [phone] FYI Social History Tobacco Use Types Packs/Day Years [...] suspected to have Coronavirus/COVID-19? No / Unsure 12/23/2022 5:21 PM EDT documented as of this encounter Miscellaneous Notes * Telephone Encounter - Jus Du - 01/12/2023 3:27 PM EDT Tc from Ilana with [facility] informing provider that pt was add on for physical therapy zcpjiwov39/12/2023 If any questions please contact Ilana at [phone] documented in this encounter Plan of Treatment Upcoming Encounters Date Type Department Care Team (Late st Contact Info) Description 01/19/2025 10:15 AM EDT Office Visit [facility] MED[facility]INE [address] [place] [address] Name, MD Aric [address] [place] [address] documented as of this encounter Visit Diagnoses Not on filedocumented in this encounter Additional Health Concerns Assessment Noted Time PHQ-9 Depression Total Score: 0 11/19/19 23 9:27 AM EST documented as of this encounter Care Teams Final Inspector Relationship Specialty Start Date End Date Name, MD Aric [address] [place] [address] PCP - General Family Medicine 06/01/22 documented as of this encounter
--- OUTSIDE RECORDS SUMMARY | 2024-11-10 13:20 | XMS_ITS | Encounter Summary ---
Author Organization [employer] Address [address] [facility] 7t [place] [address] Care Team Providers Care Problem Manager Name Role Phone Name, Aric FLOREZ Primary Care Provider [phone] Encounter Details Date Type Department Care Team ([facility] Contact Info) Description 01/12/2023 Telephone [facility] MEDICINE [address] [place] [address] NameAric MD [address] [place] [address] [phone] Social History Tobacco Use Types Packs/Day Years [...] PM EDT documented as of this encounter Plan of Treatment Upcoming Encounters Date Type Department Care Team ([facility] Contact Info) Description 01/19/2025 10:15 AM EDT Office Visit [facility] MEDICINE [address] [place] [address] NameAric MD [address] [place] [address] documented as of this encounter Visit Diagnoses Not on filedocumented in this encounter Additional Health Concerns Assessment Noted Time PHQ-9 Depression Total Score: 0 11/19/19 23 9:27 AM EST documented as of this encounter Care Teams Problem Manager Relationship Specialty Start Date End Date Name, MD Aric [address] [place] [address] PCP - General Family Medicine 06/01/22 documented as of this encounter
--- OUTSIDE RECORDS SUMMARY | 2024-11-10 13:20 | XMS_ITS | Encounter Summary ---
Author Organization [employer] Address 75 [facility] 7t [place] [address] Care Team Providers Care Cad Cam Programmer Name Role Phone Name, Aric FLOREZ Primary Care Provider [phone] Encounter Details Date Type Department Care Team (Late st Contact Info) Description 10/28/2023 Abstract [facility] MEDICINE [address] [place] [address] Name, MD Aric [address] [place] [address] Social History Tobacco Use Types Packs/Day Years Used Date Smoking Tobacco: Never Smokeless Tobacco: Never Alcohol Use Standard Drinks/Week Comments Never 0 (1 standard drink = 0.6 oz pur e alcohol) Depression Answer Date Recorded Patient Health Questionnaire-9 Score 0 11/19/2022 Housing Stability Answer Date Recorded What is your housing situation today? I have jarredjorge mckeon 08/05/[address] you [...] Description 01/19/2025 10:15 AM EDT Office Visit [facility] MEDICINE [address] [place] [address] Name, MD Aric [address] [place] [address] documented as of this encounter Visit Diagnoses Not on filedocumented in this encounter Additional Health Concerns Assessment Noted Time PHQ-9 Depression Total Score: 0 11/19/19 23 9:27 AM EST documented as of this encounter Care Teams Cad Cam Programmer Relationship Specialty Start Date End Date Name, MD Aric [address] [place] [address] PCP - General Family Medicine 06/01/22 documented as of this encounter
--- OUTSIDE RECORDS SUMMARY | 2024-11-10 13:20 | XMS_ITS | Encounter Summary ---
Author Organization [employer] Address [address] [facility] 7t [place] [address] Care Team Providers Care Wood Chopper Name Role Phone Name, Aric FLOREZ Primary Care Provider [phone] Reason for Visit * Reason Onset Date Comments Triage 12/23/2022 Encounter Details Date Type Department Care Team ([facility] st Contact Info) Description 12/23/2022 Telephone [facility] MEDICINE [address] [place] [address] Name, MD Aric [address] [place] [address] Triage Social History Tobacco Use Types Packs/Day Years [...] suspected to have Coronavirus/COVID-19? No / Unsure 03/25/2023 9:21 AM EDT documented as of this encounter Miscellaneous Notes * Telephone Encounter - Meagan Stacy RN - 12/23/2022 3:26 PM EDT Triage call with [employer] Account Manager [place] [id number] Pt son, JOHN Matamoros, reports first time seeing Pt left leg swollen from toes to thigh. Pt is walking without difficulty and no difficulty breathing. Pt does report pain. Pt is reported to have never had this before. Advised Pt son to bring to [facility] for evaluation and Son agrees with disposition. Protocol Used: Leg Swelling and Edema (Adult) Protocol-Based Disposition: Go to ED/UCC Now (or to Office with PCP Approval) Positive Triage Question: * Thigh, calf, or ankle swelling in only one leg * All higher-acuity triage questions were negative Care Advice Discussed: * Reasons To Call Back - Swelling becomes worse - Swelling becomes red or painful to the touch - Calf pain occurs and becomes constant - You become worse * Telephone Encounter - Rajesh Calderon - 12/23/2022 10:46 AM EDT Symptom: Leg Pain - Not From Injury Outcome: Schedule an urgent appointment (within 1 hour) or talk to a nurse or provider soon Reason: Severe pain now The caller accepted this outcome Please contact at [phone] documented in this encounter Plan of Treatment Upcoming Encounters Date Type Department Care Team (Late st Contact Info) Description 01/19/2025 10:15 AM EDT Office Visit [facility] MEDICINE [address] [place] [address] Name, MD Aric [address] [place] [address] documented as of this encounter Visit Diagnoses Not on filedocumented in this encounter Additional Health Concerns Assessment Noted Time PHQ-9 Depression Total Score: 0 11/19/19 23 9:27 AM EST documented as of this encounter Care Teams Wood Chopper Relationship Specialty Start Date End Date Name, MD Aric [address] [place] [address] PCP - General Family Medicine 06/01/22 documented as of this encounter
--- OUTSIDE RECORDS SUMMARY | 2024-11-10 13:20 | XMS_ITS | Encounter Summary ---
Author Organization [employer] Address [address] [facility] 7t [place] [address] Care Team Providers Care Kindergarten Tutor Name Role Phone Name, Aric FLOREZ Primary Care Provider [phone] Encounter Details Date Type Department Care Team (Latest Contact Info) Description 04/18/2019 Abstract [facility] CONVERSIONS Dental, Provider, DDS Social History Tobacco Use Types Packs/Day Years Used Date Smoking Tobacco: Never Assessed Comments Unknown Sex and Gender Information Value [...] Description 01/19/2025 10:15 AM EDT Office Visit [facility] MEDICINE [address] [place] [address] Name, MD Aric [address] [place] [address] documented as of this encounter Visit Diagnoses Not on filedocumented in this encounter Care Teams Kindergarten Tutor Relationship Specialty Start Date End Date Name, MD Aric [address] [place] [address] PCP - General Family Medicine 06/01/22 documented as of this encounter
--- OUTSIDE RECORDS SUMMARY | 2024-11-10 13:20 | XMS_ITS | Encounter Summary ---
Author Organization [employer] Address [address] [facility] 7t [place] [address] Care Team Providers Care Bread Pan Greaser Name Role Phone Name, Aric FLOREZ Primary Care Provider [phone] Reason for Visit * Reason Onset Date Comments Med Refill 11/02/2023 Encounter Details Date Type Department Care Team (Late st Contact Info) Description 11/02/2023 Telephone [facility] MEDICINE [address] [place] [address] Name, MD Aric [address] [place], [place] [phone] Med Refill Social History Tobacco Use Types Packs/Day Years [...] the past 12 months, has t he [employer] oil or [employer] threatened to shut off services in your [...] encounter Miscellaneous Notes * Telephone Encounter - Nancy Gupta LPN - 11/02/2023 1:04 PM EST Donepezil was sent on 08/23/23 #30 with 3 refills and Eliquis pended to PCP. * Telephone Encounter - Charlene Zarate - 11/02/2023 12:29 PM EST TC from pt requesting medication refill. Medications needing refill : Eliquis 5 MG tablet donepezil (Aricept) 10 MG tablet To be sent to: [facility] - [place], [place] - [address] [place] [address] documented in this encounter Plan of Treatment Upcoming Encounters Date Type Department Care Team (Late st Contact Info) Description 01/19/2025 10:15 AM EDT Office Visit [facility] MEDICINE [address] [place] [address] Name, MD Aric [address] [place] [address] documented as of this encounter Visit Diagnoses Not on filedocumented in this encounter Additional Health Concerns Assessment Noted Time PHQ-9 Depression Total Score: 0 11/19/19 9:27 AM EST documented as of this encounter Care Teams Bread Pan Greaser Relationship Specialty Start Date End Date NameAric MD [address] [place] [address] PCP - General Family Medicine 06/01/22 documented as of this encounter
--- OUTSIDE RECORDS SUMMARY | 2024-11-10 13:20 | XMS_ITS | Encounter Summary ---
Author Organization [employer] Address [address] [facility] 7t [place] [address] Care Team Providers Care Cardiology Technologist Name Role Phone Name, Aric FLOREZ Primary Care Provider [phone] Reason for Visit * Reason Onset Date Comments Triage 01/07/2023 Encounter Details Date Type Department Care Team (Late st Contact Info) Description 01/07/[address] [facility] MEDICINE [address] [place] [address] Name, MD Aric [address] [place], [place] [phone] Triage Social History Tobacco Use Types Packs/Day [...] encounter Miscellaneous Notes * Telephone Encounter - Yesica Gomez RN - 01/07/2023 12:32 PM EDT Call to pt brother who is on HIPPA. States already had a call and was given an appt on 01/20/23 withShree Wall. Pt brother advised that this was in regards to HDF. Ifeanyi eddy currently has [facility] in the home and unable to stay on the line. Pt advised will send to team to reivew if separate HDF apptneeded or if appt on 01/20/23 (booked by team RN, no notes on booking in previous calls) can serve as follow up. Please follow up with pt brother. * Telephone Encounter - Yesica Gomez RN - 01/07/2023 11:19 AM EDT Call returned to patient for triage. No answer LVM to return call to [facility] triage line. Protocol Used: No Contact or Duplicate Contact Call (Adult) Protocol-Based Disposition: No Contact Call Positive Triage Questions: * No answer. First attempt to contact caller. Follow-up call scheduled within 30 minutes. * Message left on identified voicemail * All higher-acuity triage questions were negative * Telephone Encounter - Jus Du - 01/07/2023 11:07 AM EDT Patient calling for HDF follow up appointment. Patient hospitalized at [facility]. Patient was admitted on December 24 2022 and discharged on December 25, 2022 Patient was advised will forward to triage nurse for follow up and appointment scheduling. Please contact brother at [phone] documented in this encounter Plan of Treatment Upcoming Encounters Date Type Department Care Team (Late st Contact Info) Description 01/19/2025 10:15 AM EDT Office Visit [facility] MEDICINE [address] [place] [address] Name, MD Aric [address] [place] [address] documented as of this encounter Visit Diagnoses Not on filedocumented in this encounter Additional Health Concerns Assessment Noted Time PHQ-9 Depression Total Score: 0 11/19/19 23 9:27 AM EST documented as of this encounter Care Teams Cardiology Technologist Relationship Specialty Start Date End Date Name, MD Aric [address] [place] [address] PCP - General Family Medicine 06/01/22 documented as of this encounter
--- NOTE | 2024-11-10 13:42 | MHC.EDTECH ---
pt uncooperative with EKG and lab work. KATINA Napier aware.
[2024-11-10] MEDS: LORazepam 2 MG/ML VIAL 1 MG IVPUSH ×2 (14:08→15:09)
--- NOTE | 2024-11-10 14:11 | PC.NURSE ---
IV established, medicated per the MAR w/ ativan for patient to go to CT scan.
[2024-11-10 14:37] LABS: Troponin-I High Sensitivity < 2.7 ng/L (<3.5-17.0)
[2024-11-10 15:49] VITALS: PULSE 67; RESP 16
--- NOTE | 2024-11-10 16:33 | MHC.EDTECH ---
patient not allowing ekg. patient is pulling off leads and turning away.
[2024-11-10] MEDS: Diphth,Pertus(ACell),Tet Adult 0.5 ML SYRINGE IM (17:26)
[2024-11-10 18:00] VITALS: PULSE 96; RESP 16; O2SAT 95
[2024-11-10 19:30] LABS: Influenza A PCR NEGATIVE (Negative); Influenza B PCR NEGATIVE (Negative); Resp Syncy Virus RNA Qual PCR NEGATIVE (Negative); SARS COV2 PCR INHOUSE NEGATIVE (Negative)
[2024-11-10 20:00] VITALS: BP 134/62; PULSE 87; RESP 18; O2SAT 96
[2024-11-10 22:00] VITALS: PULSE 55; RESP 18; O2SAT 95
--- NOTE | 2024-11-10 23:58 | PC.NURSE ---
attempted to arouse pt for ambulatory trial without success. plan is to reassess in AM and call family to transport home. sleeping quietly. bed alarm on for safety. cont to monitor.
[2024-11-11 00:22] VITALS: BP 128/70; PULSE 57; RESP 16; TEMP 36.3; O2SAT 100
[2024-11-11 02:28] VITALS: BP 115/57; PULSE 57; RESP 16; TEMP 36.5; O2SAT 100
--- NOTE | 2024-11-11 02:42 | PC.NURSE ---
brother Harinder Webber number [phone]. pt remains asleep, no attempts out of bed. respirations easy/non labored. cont to reinforce safety and monitor.
--- NOTE | 2024-11-11 03:41 | PC.NURSE ---
sleeping comfortably. no attempts out of bed. VSS.
[2024-11-11 05:21] VITALS: BP 131/68; PULSE 62; RESP 16; TEMP 36.8; O2SAT 96
--- NOTE | 2024-11-11 06:39 | PC.NURSE ---
assisted with ambulation to bathroom. brief changed. assisted back to bed without incident. to call brother Harinder for transport home.
--- NOTE | 2024-11-11 06:41 | PC.NURSE ---
brother Harinder called and made aware of pt's readiness to go home and will arrive to transport.
[2024-11-11 08:05] VITALS: BP 126/69; PULSE 66; RESP 18; TEMP 36.7; O2SAT 96
== END 2024-11-11 08:05 | disposition home or self-care (01) ==
PROVIDERS: Registered Nurse Emergency; Emergency Provider Emergency Medicine Emergency Medical Services; PCP Internal Medicine Geriatric Medicine
DX: S01.01XA Laceration without foreign body of scalp, initial encounter (principal); F03.90 Unspecified dementia, unspecified severity, without behavioral disturbance, psychotic disturbance, mood disturbance, and anxiety; R51.9 Headache, unspecified; M54.2 Cervicalgia; R41.82 Altered mental status, unspecified; R00.1 Bradycardia, unspecified; W18.30XA Fall on same level, unspecified, initial encounter; Y93.9 Activity, unspecified; Y92.9 Unspecified place or not applicable; Y99.8 Other external cause status; Z86.711 Personal history of pulmonary embolism; Z79.01 Long term (current) use of anticoagulants; Z79.899 Other long term (current) drug therapy; Z23 Encounter for immunization; Z03.818 Encounter for observation for suspected exposure to other biological agents ruled out
CPT/HCPCS: 0241U; 36415; 70450; 72125; 80048; 84484; 85025; 85610; 90471; 90715; 93005; 96374; 96376; 99284; 99285; J2060

== ENCOUNTER → 2024-11-10 13:13 | Outpatient (BNV) | payer OTHER, SELFPAY | PROVIDERS: Emergency Provider Emergency Medicine Emergency Medical Services; PCP Internal Medicine Geriatric Medicine; Visit Provider Internal Medicine Cardiovascular Disease | DX: R00.1 Bradycardia, unspecified (principal) | CPT/HCPCS: 93010 ==

== ENCOUNTER → 2024-11-10 15:55 | Outpatient (BNV) | payer OTHER, SELFPAY | PROVIDERS: Emergency Provider Emergency Medicine Emergency Medical Services; PCP Internal Medicine Geriatric Medicine; Visit Provider Radiology Diagnostic Radiology | DX: S00.93XA Contusion of unspecified part of head, initial encounter (principal); W19.XXXA Unspecified fall, initial encounter | CPT/HCPCS: 70450; 72125 ==

== ENCOUNTER 2025-08-24 10:12 | Outpatient (REF) | payer OTHER, SELFPAY ==
--- OUTSIDE RECORDS SUMMARY | 2025-08-24 10:47 | XMS_ITS | Encounter Summary ---
Author Organization [employer] Address [address] [facility] 7t [place] [address] Care Team Providers Care Ophthalmic Photographer Name Role Phone Name, Aric FLOREZ Primary Care Provider Encounter Details Date Type Department Care Team (Late Contact Info) Description 02/25/2023 Abstract [facility] MEDICINE [address] [place] [address] Name, MD Aric [address] [place] [address] [phone] Social History Tobacco Use Types Packs/Day Years [...] Encounters Date Type Department Care Team (Late Contact Info) Description 09/06/2025 9:00 AM EST Office Visit [facility] MEDICINE [address] [place] [address] Name, MD Aric [address] [place] [address] [place] [address] documented as of this encounter Procedures Procedure [...] documented as of this encounter Care Teams Ophthalmic Photographer Relationship Specialty Start Date End Date Name, MD Aric [address] [place] [address] PCP - General Family Medicine 06/01/22 documented as of this encounter
--- OUTSIDE RECORDS SUMMARY | 2025-08-24 10:47 | XMS_ITS | Encounter Summary ---
Author Organization [employer] Address [address] [place] [address] 7t [place] [address] Care Team Providers Care Merchandising Consultant Name Role Phone Name, Aric FLOREZ Primary Care Provider [phone] Reason for Visit * Reason Comments Med Refill Encounter Details Date Type Department Care Team (Late st Contact Info) Description 04/30/2023 Refill [facility] MEDICINE [address] [place] [address] [phone] [facility] [address] [place], [place] [phone] Social History Tobacco Use Types Packs/Day Years [...] Care Team (Late st Contact Info) Description 09/06/2025 9:00 AM EST Office Visit [facility] MEDICINE [address] [place] [address] [phone] Name, MD Aric [address] [place] [address] documented as of this encounter Visit Diagnoses Not on filedocumented in this encounter Additional Health Concerns Assessment Noted Time PHQ-9 Depression Total Score: 0 11/19/19 23 9:27 AM EST documented as of this encounter Care Teams Merchandising Consultant Relationship Specialty Start Date End Date Name, MD Aric [address] [place] [address] PCP - General Family Medicine 06/01/22 documented as of this encounter
--- OUTSIDE RECORDS SUMMARY | 2025-08-24 10:47 | XMS_ITS | Data Portability ---
Author Organization [employer] [facility], [facility] Address [address] [place] [address] Care Team Providers Care Ac/Dc Rewinder Name Role Phone HIM CCA OTHER NAME, JUDY Primary Care Provider Assessment Encounter Date Assessment Date Assessment LastModified by Organization Details LastModified Time 04/19/2025 04/19/2025 I have reviewed and agree with the assessment and plan as documented by the field reviewer. I provided real-time medical direction for this encounter and was immediately available to provide additional phone-based assistance as needed. History as noted in EMR and by field reviewer. 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 No report of trauma the patient is nonverbal with dementia. Patient has not been touching the eye frequently per her report. No drainage noted. AVSS afebrile and well-appearing. Review of clinical images shows some slight scleral injection which may be subconjunctival hemorrhage in the setting of her apixaban use. Daughter reports that it appears to be improving today compared to previously. Advised continued usage of apixaban and close monitoring of the eye with call back for worsening symptoms however it does appear that patient symptoms are improving and thus expectant management is reasonable. pallfather Not available 04/19/2025 15:39:09 Plan of Treatment Reminders Order Date Submit Date Provider Last Modified By Organization Details Last Modified Time Details Appointments None record ed. Lab None record ed. Referral None record ed. Procedures None record ed. Surgeries None record ed. Imaging None record ed. Medication Orders None record ed. Patient TargetsNo targets recorded. Patient InstructionsNo instructions recorded. Reason for Referral None Reported. Medical Equipment None Reported. Allergies No known drug allergies Medications Name Sig Start Date Stop Date Status Note LastModified by Organization Details LastModified Time trazodone 50 mg tablet TAKE 1 TABLET BY MOUTH AT BEDTIME active Not Available Not Available No t Available donepezil 10 mg tablet TAKE 1 TABLET BY MOUTH EVERY DAY AT BEDTIME active Not Available Not Available No t Available polyethylene glycol 3350 17 gram/dose oral powder Mix 17g (1 capful) in 8 ounces of water and take by mouth every day active Not Available Not Available No t Available risperidone 0.5 mg tablet TAKE 1 TABLET BY MOUTH TWICE DAILY active Not Available Not Available No t Available memantine 10 mg tablet TAKE 1 TABLET BY MOUTH TWICE DAILY active Not Available Not Available No t Available memantine 5 mg tablet TAKE 1 TABLET BY MOUTH TWICE DAILY active Not Available Not Available No t Available Eliquis 5 mg tablet TAKE 1 TABLET BY MOUTH TWICE DAILY active Not Available Not Available No t Available Vitals Date Recorded Body height Body weight Body temperature Oxygen saturation Respiratory rate Heart rate Respiratory rate Systolic And Diastolic Provider Name and Address Organization Details Last Updated DateTime 5 162.56 cm 28578.8 g 98 [degF] 97 % 14 /min 78 /min 143 /min 112/68 mm[Hg] Not Available [facility] - production 5 15:10:37 Social History None recorded. Functional Status None recorded. Mental Status None recorded. Family History Nothing Reported. Medical History No medical history recorded. Gynecological HistoryNo gynecological history recorded. Obstetrics History GPAL:G 0 P 0 0 0 0 Past Encounters Encounter ID Performer Location Encounter Start Date Encounter Closed Date Diagnosis/Indication Diagnosis SNOMED-CT Code Diagnosis ICD10 Code Diagnosis IMO Codes Diagnosis Note [id number] Ottoniel Rider MD [facility] [address] [id number] 04/19/2025 15:10:28 04/19/2025 15:57:58 Subconjunctival hemorrhage of left eye [id number] 86491 H11.32 [id number] Health Concerns Section Related Observation LastModified by Organization Detai ls LastModified Time None Recorded Concern Status LastModified by Organization Details LastModified Time None Recorded Advance Directives Directive None Recorded Payers Insurance Date Sequence Insurance Name Policy Number Policy Mackay Covered Member ID Mackay Member ID Guarantor Name 04/19/2025 1 [facility] - DOS ON OR AFTER 2023 - DUAL ELIGIBLE - CARE HOME OPTIONS AND ONE CARE (MEDICARE REPLACEMENT/ADV ANTAGE - HMO) Lala Moss [id number] Lala Moss Notes Date Note Type Note Provider Name and Address Organization Details Recorded Time 04/19/2025 text/html CRC Nurse Triage Notes (Dolly Cheema): Reason For Request: right eye is red Patient Reports: Conjunctivitis Denies: Sudden onset of dental pain, unable to manage own secretions Nosebleed lasting longer than one hour; unable to stop bleeding Throat swelling/difficult swallowing Dental pain and fever, able to maintain secretions Sinus infection External Ear concerns Chief Complaints: Eye Complaint PMH: Dementia (e.g., Alzheimer's Disease) PMH Reviewed at 04/19/2025:44 Allergies Reviewed at 04/19/2025:44 Comments: 74 y.o female complains of Eye Complaint Patients daughter states left eye has been red for 2 days No known exposure to anything new, does not go outside, She states its not puffy surrounding eye. denies any drainage denies any fever or chills she has dementia and has a difficult making needs known, has not been touching or scratching around the eyes or given any non verbal cues that it is painful. Patient is on Eliquis hx DVT denies any kidney disease requesting Inst[facility] visit for evaluation I provided information on the mobile health provider response time and advised the patient and/or caregiver to monitor reported signs and symptoms. I discussed the warning signs of when to seek emergency care. .................... .................... .................... .................... .................... .................... .................... . Senior Product Development Manager Note From Xavier Leone: Patient seated in chair. Caregiver called, concern is redness on left eye times two days. Significant dementia, patient nonverbal. Caregivers report no signs of pain or irritation, patient has not been itching or using her hand to touch her eye. No other concerns noted by caregivers. Patient seated, focused gaze on individuals in the room. [place] warm, dry, secondary exam unremarkable, negative increased work of breathing. Extremities unremarkable no edema noted. [facility] discuss this case with caregiver on phone. Caregiver demonstrates understanding of care and plan. Red flags patient education discussed. Consent uploaded in documents .................... .................... .................... .................... .................... .................... .................... . [facility] Consulted: Ottoniel Rider .................... .................... .................... .................... .................... .................... .................... . Disposition: Fulfilled Ottoniel Rider MD [address] [facility],[address], [place], [address], [employer] 04/19/2025 15:39:18 OBGyn Episode No OBEpisode recorded.
--- OUTSIDE RECORDS SUMMARY | 2025-08-24 10:47 | XMS_ITS | Encounter Summary ---
Author Organization [employer] Address [address] [facility] 7t [place] [address] Care Team Providers Care Supervisor Last Model Department Name Role Phone Name, Aric FLOREZ Primary Care Provider [phone] Reason for Visit * Reason Onset Date Comments Med Refill 11/02/2023 Encounter Details Date Type Department Care Team (Late st Contact Info) Description 11/02/2023 Telephone [facility] MEDICINE [address] [place] [address] Name, MD Aric [address] [place], [place] [phone] Med Refill Social History Tobacco Use Types [...] the past 12 months, has t he [place], gas, oil or water [employer] threatened to shut off services in your [...] 10 MG tablet To be sent to: [facility] [place], [place] - [address] [place] [address] documented in this encounter Plan of Treatment Upcoming Encounters Date Type Department Care Team (Late st Contact Info) Description 09/06/2025 9:00 AM EST Office Visit [facility] MED[facility] [address] [place] [address] NameAric MD [address] [place] [address] documented as of this encounter Visit Diagnoses Not on filedocumented in this encounter Additional Health Concerns Assessment Noted Time PHQ-9 Depression Total Score: 0 11/19/19 9:27 AM EST documented as of this encounter Care Teams Supervisor Last Model Department Relationship Specialty Start Date End Date NameAric MD [address] [place] [address] PCP - General Family Medicine 06/01/22 documented as of this encounter
--- OUTSIDE RECORDS SUMMARY | 2025-08-24 10:47 | XMS_ITS | Encounter Summary ---
Author Organization [employer] Address [address] [facility] 7[address] [place] [address] Care Team Providers Care Strategy Associate Name Role Phone Name, Aric FLOREZ Primary Care Provider [phone] Reason for Visit * Reason Onset Date Comments Triage 01/07/2023 Encounter Details Date Type Department Care Team (Late st Contact Info) Description 01/07/2023 Telephone [facility] [address] [place] [address] Name, MD Aric [address] [place], [place] [phone] Triage Social History Tobacco Use Types Packs/Day [...] No answer LVM to return call to [facility] triage line. Protocol Used: No Contact or [...] HDF follow up appointment. Patient hospitalized at [facility]. Patient was admitted on December 24 2022 and discharged on December 25, 2022 Patient was advised will forward to triage nurse for follow up and appointment scheduling. Please contact brother at [phone] documented in this encounter Plan of Treatment Upcoming Encounters Date Type Department Care Team (Late st Contact Info) Description 09/06/2025 9:00 AM EST Office Visit [facility] MEDICINE [address] [place] [address] Name, MD Aric [address] [place] [address] documented as of this encounter Visit Diagnoses Not on filedocumented in this encounter Additional Health Concerns Assessment Noted Time PHQ-9 Depression Total Score: 0 11/19/19 23 9:27 AM EST documented as of this encounter Care Teams Strategy Associate Relationship Specialty Start Date End Date Name, MD Aric [address] [place] [address] PCP - General Family Medicine 06/01/22 documented as of this encounter
--- OUTSIDE RECORDS SUMMARY | 2025-08-24 10:47 | XMS_ITS | Continuity of Care Document ---
Author Name Rudy Russell Address [address] [place] [id number] Organization Unknown Address [address] [place] [address] Medications No known medications Problems No known problems
--- OUTSIDE RECORDS SUMMARY | 2025-08-24 10:47 | XMS_ITS | Patient Health Record ---
Author Organization [facility] Address [address] [place] [address] Care Team Providers Care Critical Care Unit Manager Name Role Phone Jadiel AMBRIZ, Martine Primary Care Provider Unavailab Douglas Talavera Unavailable [phone] Reason For Referral No Information Medications Medication SIG (Take, Route, Frequency, Duration) Notes Start Date End Date Status Atorvastatin Calcium 80 MG Tablet 1 tablet Orally Once a day Active Tylenol 325 MG Tablet 2 tablets as neede d Orally every 6 hrs/prn Active Vitamin D3 2000 UNIT Capsule 1 capsule Orally Once a day Active Aricept 5 MG Tablet 1 tablet at bedtime Orally Once a day Active Bentyl 20 MG Tablet 1 tablet Orally Four times a day/prn Active Namenda 10 MG Tablet 1 tablet Orally Twi ce a day Active MiraLax - Packet 1 packet mixed with 8 ounces of fluid Orally Once a day Active FLUoxetine HCl 20 MG Tablet 2 tablet in the morning Orally Once a day Active Calcium + D3 600-200 MG-UNIT Tablet 1 tablet with a meal Orally twice a day Active Omeprazole 20 MG Capsule Delayed Release 1 capsule Orally Once a day Active Immunizations Vaccine Route Administration Date Status Comme nts Flu vaccine no Preserv 3 and > Unknown 07/03/2016 Admin istered Social History Tobacco Use: Social History Observation Description Date Details (start date - stop date) Never Smoker NA - NA Social History Drugs/Alcohol: Social Info Question Answer Notes Alcohol Screen Did you have a drink containing alcohol in the past year? No Points 0 Interpretation Negative Tobacco Use: Social Info Question Answer Notes Tobacco Use/Smoking Patient is a nonsmoker Additional Details Category Social Info Options Details Miscellaneous: Marital status: single Occupation: retired Living with: Family Section Notes: Nonsmoker; no alcohol Problems Problem Type SNOMED Code ICD Code Onset Dates Problem Status W/U Status Risk Notes Problem Screening for malignant neoplasm of colon (823778096) Encounter for screening for malignant neoplasm of colon (Z12.11) Active confirmed Problem History of adenomatous polyp of colon (721477868) History of adenomatous polyp of colon (Z86.010) Active confirmed Problem Gastroesophageal reflux disease without esophagitis (577121722) Gastroesophageal reflux disease without esophagitis (K21.9) Active confirmed Problem Graves's esophagus (847212476) Barretts esophagus without dysplasia (K22.70) Active confirmed Problem Periumbilical pain (941693722) Abdominal pain, periumbilic (R10.33) Active confirmed Plan Of Treatment Future Test Test Name Order Date UPPER GI ENDOSCOPY 06/18/2017 COLONOSCOPY 06/18/2017 Insurance Providers Payer Name Payer Address Payer Phone Subscriber Number Group Number Insured Name Patient Relationship to Insured Coverage Start Date Coverage End Date [facility] [address] [place] [phone] [id number] GARRET MOSS Self - patient is the insured Medical (General) History Medical History History ICD Code Denies NV,DM,CVA,Lung disease,renal dise ase Dementia IBS Vitamin D deficiency GERD-EGD in 2009 and 2004--l arge HH and small area of Graves's--no dysplasia Tubular adenoma removed in 2 005---colonoscopy in 2009 was negative except for diverticulosis and internal hemorrhoids Depression
--- OUTSIDE RECORDS SUMMARY | 2025-08-24 10:47 | XMS_ITS | Clinical Summary ---
Author Organization [employer] Address [address] [facility] 7[address] [place] [address] Care Team Providers Care Call Center Professional Name Role Phone Name, Aric FLOREZ Primary Care Provider [phone] Allergies Active Allergy Reactions Criticality Noted Date Comments Penicillin V 12/17/2010 Other reaction(s): unspecified Penicillins Rash Low 04/13/2023 Medications memantine (Namenda) 10 MG tablet Take 10 mg by mouth 2 times daily. 022 Active Multiple Vitamin (Multi-Vitamin ) tabletIndicati ons:Severe dementia without behavioral disturbance, psychotic disturbance, mood disturbance, or anxiety, unspecified dementia type (CMS/HCC) (HCC) take 1 tablet by oral route every [...] (Desyrel) 50 MG tabletIndicati ons:Insomnia, unspecified type TAKE 1 TABLET BY MOUTH AT BEDTIME 30 tablet 3 025 Active risperiDONE (RisperDAL) 0.5 MG tablet Take 0.5 mg by mouth 2 times daily. Active Eliquis 5 MG tabletIndicati ons:Hx pulmonary embolism TAKE 1 TABLET BY MOUTH TWICE DAILY 60 tablet 025 Active Eliquis 5 MG tabletIndicati ons:Hx pulmonary embolism TAKE 1 TABLET BY MOUTH TWICE DAILY 60 tablet 025 2024 Discontinued Active Problems Problem Noted Date Diagnosed Date History of cholecystectomy 06/12/2024 Overview (06/12/2024): April of last year Bilateral pulmonary embolism (CMS/HCC) Left leg DVT (CMS/HCC) 06/02/2023 Osteopenia 06/02/2023 Recurrent biliary colic 06/02/2023 Weight loss 06/02/2023 Calculus of gallbladder with out cholecystitis without obstruction 03/25/2023 Hx pulmonary embolism 01/20/2023 Assessment & Plan (01/20/2023 1:59 PM EDT): Patient was [place] [facility] [place] a [place] [facility] Plan of Treatment: take apixaban [ELIQUIS] 5 [...] reflux disease) 5 Depressive disorder 07/25/2015 Dementia (CMS/HCC) 07/25/2015 Resolved Problems Problem Noted Date Diagnosed Date Resolved Date Anemia 01/19/2023 09/20/2024 Assessment & Plan (01/20/2023 1:54 PM EDT): Patient appears to have mild anemia. Component Ref Range & Units 4 wk ago (12/23/22) 1 yr ago (11/12/21) 1 yr ago (03/27/21) White Blood Count 4.8 - 10.8 X10*3/uL 9.9 Red Blood Count 4.20 - 5.50 X10*6/uL 3.73 Low Hemoglobin 12.0 - 16.0 g/dl 11.8 Low 12.7 R 13.0 R Hematocrit 37.0 - 47.0 % 35.1 Low 37.8 R 38.6 R Mean Corpuscular Volume [...] Encounters Date Type Department Care Team Description 08/07/2025 Refill [facility] MEDICINE [address] [place] [phone] NameAric MD Hx pulmonary embolism 06/20/2025 Refill [facility] MEDICINE [address] [place] [phone] NameAric MD Hx pulmonary embolism 06/13/2025 9:45 AM EDT Office Visit [facility] MED[facility]INE [address] [place] [phone] NameAric MD Severe dementia without behavioral disturbance, psychotic disturbance, mood disturbance, or anxiety, unspecified dementia type (CMS/HCC) (Primary Dx); Bruxism (teeth grinding); History of DVT (deep vein thrombosis); Prediabetes 06/13/2025 Telephone [facility] MEDICINE [address] [place] [phone] Aric Lobato MD fyi 06/13/2025 Travel 06/11/2025 Telephone [facility]S [address] [place] [address] Name, MD Aric Chart Prep from Last 3 Months Immunizations Immunization Administration Dates Next Due Influenza High-dose Quadriva [...] housing situation today? I have jarred mckeon 04/23/[address] you li ve. Do you have problems with any of the following? None of the above 04/23/2025 Food Insecurity Answer Date Recorded Within the past 12 months, y ou worried that your food would run out before you got money to buy more: Never True 04/23/2025 Within the past 12 months,th e food you bought just didn't last and you didn't have enough money to get more: Never True Transportation Answer Date Recorded In the past 12 months, has l ack of transportation kept you from medical appts, meetings, work or from getting things needed for daily living? No 04/23/2025 Utilities Answer Date Recorded In the past 12 months, has t he electric, gas, oil or water company threatened to shut off services in your home? No 04/23/2025 Depression Answer Date Recorded Patient Health Questionnaire-2 Score 0 11/19/2022 Internet Access Answer Date Recorded Internet Access Q1 Yes 04/23/2025 Internet Access Q2 Not on file 04/23/2025 Comments Unknown Sex and Gender Information Value Date Recorded Sex Assigned at Female 08/03/2022 10:17 AM EDT Legal Sex Female 10:17 AM EDT Gender Identity Female 08/03/2022 10:17 AM EDT Sexual Orientation Choose not to disclose 2021 10:17 AM EDT Last Filed Vital Signs Vital Sign Reading Time Taken Comments Blood Pressure 124/82 06/13/2025 9:41 AM EDT Pulse 62 06/13/2025 9:41 AM EDT Temperature 36.1 C (97 F) 06/13/2025 9:41 AM EDT Respiratory Rate 12 06/13/2025 9:41 AM EDT Oxygen Saturation 96% 04/23/2025 11:01 AM EDT Inhaled Oxygen Concentration - - Weight 42.6 kg (94 lb) 06/13/2025 9:41 AM EDT Height 152.4 cm (5') 03/25/2023 9:31 AM EDT Body Mass Index 18.36 03/25/2023 9:31 AM EDT Plan of Treatment Upcoming Encounters Date Type Department Care Team (Late st Contact Info) Description 09/06/2025 9:00 AM EST Office Visit [facility] MED[facility] [address] [place] [address] Name, MD Aric [address] [place] [address] Health Maintenance Due Date Last Done Comments CT Colonography 1949 FIT DNA/Cologuard 1950 FIT 1949 FOBT 1950 Sigmoidoscopy 1950 Zoster Vaccines (2 of 3) 09/19/2015 07/25/2015 Depression Screening 11/19/2023 11/19/2022, 11/19/19 23 RSV Patients and Patients Aged 60 years or older (1 - 1-dose 75+ series) 2024 COVID-19 Vaccine ( season) 2025 09/20/2024, 07/17/2022, 10/27/2021, Additional history exists Influenza Vaccine (#1) 2025 , 07/17/2022, 10/27/2021, Additional history exists Alcohol/Substance Use Screening 04/23/2026 04/23/2025 SDOH Screening 04/23/2026 04/23/2025 Diabetes: Hemoglobin A1C 06/13/2026 025, 01/20/2023, 11/12/2021, Additional history exists Tobacco Screening 06/13/2026 06/13/2025 Colonoscopy 09/08/2027 09/08/2017 Colorectal Cancer Screening 09/08/2027 DTaP/Tdap/Td Vaccines (4 - Td or Tdap) 11/10/2034 11/10/2024, 09/20/2024, 09/01/2012, Additional history exists Pneumococcal Vaccine: 50+ Years Completed 11/18/2017, 09/24/2016, 07/25/2015 Hepatitis C Screening Completed 11/12/2021 HIB Vaccines Aged Out No longer eligi [...] patient's age to complete this topic Meningococcal B Vaccine Aged Out No l onger eligible based on patient's age to complete [...] Procedure Name Priority Date/Time Associated Diagnosis Comments POCT GLYCATED HEMOGLOBIN, TOTAL Routine 06/13/2025 9:45 AM EDT Prediabetes POCT GLUCOSE Routine 06/13/2025 9:43 AM EDT Prediabetes ZZZ HISTORICAL HEPATITIS C AB W/REFL TO HCV RNA, QN, PCR Routine 11/12/2021 10:56 AM EST HM COLONOSCOPY Routine 09/08/2017 11:20 AM EST from Last 3 Months or Most Recently Relevant to Health Maintenance Results * POCT Hgb A1c (06/13/2025 9:45 AM EDT) Hemoglobin A1C 5.7 4.0 - 5.7 % QC Media Lot # [id number] Lot# Expiration Date 41,627 Blood 06/13/2025 9:45 AM EDT us Aric Lobato MD POINT OF CARE TEST ENTER/EDIT OR DERABLES Final Result * POCT Glucose (06/13/2025 9:43 AM EDT) Glucose Blood, POC 94 60 - 200 mg/dL QC Media Lot # [id number] Lot# Expiration Date ,726 Blood Capillary blood specimen / Unknown 06/13/2025 9:43 AM EDT us Aric Lobato MD POINT OF CARE TEST ENTER/EDIT OR DERABLES Final Result * HEPATITIS C AB W/REFL TO HCV RNA, QN, PCR (11/12/2021 10:56 AM EST) HEPATITIS C ANTIBODY NON-REACT ANKIT NON-REACT ANKIT [facility] INDEX 0.01 <1.00 [facility] Comment: HCV antibody was non-reactive. There is no laboratory evidence of HCV infection. In most cases, no further action is required. However, if recent HCV exposure is suspected, a test for HCV RNA (test code 27764) is suggested. For additional information please refer to http://education.mysportgroup/faq/GXW36l4 (This link is being provided for informational/ educational purposes only.) 11/12/2021 10:5 6 AM EST us Kylee Green DENTAL ASSISTANT MEDICAL ASSISTANT HISTORICAL/NON ORDERABLE LABS Final Result [facility] [address] * Hm Colonoscopy (09/08/2017 11:20 AM EST) Colonoscopy Normal Normal Narrative Sangeetha Winston - 09/08/2017 11:20 AM EST Recommended 10 year follow up us Historical Provider MD HEALTH MAINTENANCE Final Result from Last 3 Months or Most Recently Relevant to Health Maintenance Insurance OPTIONS (O D-SNP) DIO LIZ [id number] Care Teams Call Center Professional Relationship Specialty Start Date End Date Name, MD Aric [address] [place] [phone] PCP - General Family Medicine 06/01/22
--- OUTSIDE RECORDS SUMMARY | 2025-08-24 10:47 | XMS_ITS | Encounter Summary ---
Author Organization [employer] Address [address] [facility] [address] [place] [address] Care Team Providers Care Engineering Equipment Operator Name Role Phone Name, Aric FLOREZ Primary Care Provider [phone] Encounter Details Date Type Department Care Team (Late st Contact Info) Description 10/28/2023 Abstract [facility] [address] [place] [address] Name, MD Aric [address] [place] [address] Social History Tobacco Use Types [...] Description 09/06/2025 9:00 AM EST Office Visit [facility] [address] [place] [address] Name, MD Aric [address] [place] [id number] documented as of this encounter Visit Diagnoses Not on filedocumented in this encounter Additional Health Concerns Assessment Noted Time PHQ-9 Depression Total Score: 0 11/19/19 23 9:27 AM EST documented as of this encounter Care Teams Engineering Equipment Operator Relationship Specialty Start Date End Date Name, MD Aric [address] [place] [id number] PCP - General Family Medicine 06/01/22 documented as of this encounter
--- OUTSIDE RECORDS SUMMARY | 2025-08-24 10:47 | XMS_ITS | Encounter Summary ---
Author Organization [employer] Address [address] [facility] [address] [place] [address] Care Team Providers Care Roundhouse Firer/Fireman Name Role Phone Name, Aric FLOREZ Primary Care Provider [phone] Encounter Details Date Type Department Care Team ([facility] Contact Info) Description 01/12/2023 Telephone [facility] MED[facility]INE [address] [place] [address] Name, MD Aric [address] [place] [address] [phone] Social History Tobacco Use Types Packs/Day Years [...] Description 09/06/2025 9:00 AM EST Office Visit [facility] [address] [place] [address] Name, MD Aric [address] [place] [address] [place] [phone] documented as of this encounter Visit Diagnoses Not on filedocumented in this encounter Additional Health Concerns Assessment Noted Time PHQ-9 Depression Total Score: 0 11/19/19 23 9:27 AM EST documented as of this encounter Care Teams Roundhouse Firer/Fireman Relationship Specialty Start Date End Date Name, MD Aric [address] [place] [address] PCP - General Family Medicine 06/01/22 documented as of this encounter
--- OUTSIDE RECORDS SUMMARY | 2025-08-24 10:47 | XMS_ITS | Encounter Summary ---
Author Organization [employer] Address [address] [facility] [address]t [place] [address] Care Team Providers Care Driver Medic Name Role Phone Name, Aric FLOREZ Primary Care Provider [phone] Reason for Visit * Reason Onset Date Comments FYI 01/12/2023 Encounter Details Date Type Department Care Team (Late st Contact Info) Description 01/12/2023 Telephone [facility] MEDICINE [address] [place] [address] Name, MD Aric [address] [place], [place] [phone] I Social History Tobacco Use Types Packs/Day Years [...] encounter Miscellaneous Notes * Telephone Encounter - Palmainder Mossnayla Du - 01/12/2023 3:27 PM EDT Tc from Ilana with [facility] informing provider that pt was add on for physical therapy [id number]/2023 If any questions please contact Ilana at [phone] documented in this encounter Plan of Treatment Upcoming Encounters Date Type Department Care Team (Late st Contact Info) Description 09/06/2025 9:00 AM EST Office Visit [facility] MEDICINE [address] [place] [address] Name, MD Aric [address] [place] [address] documented as of this encounter Visit Diagnoses Not on filedocumented in this encounter Additional Health Concerns Assessment Noted Time PHQ-9 Depression Total Score: 0 11/19/19 23 9:27 AM EST documented as of this encounter Care Teams Driver Medic Relationship Specialty Start Date End Date Name, MD Aric [address] [place] [id number] PCP - General Family Medicine 06/01/22 documented as of this encounter
--- OUTSIDE RECORDS SUMMARY | 2025-08-24 10:47 | XMS_ITS | Encounter Summary ---
Author Organization [employer] Address [address] [facility] [address] [place] [address] Care Team Providers Care Certified Athletic Trainer Name Role Phone Name, Aric FLOREZ Primary Care Provider [phone] Encounter Details Date Type Department Care Team (Latest Contact Info) Description 04/18/[address] [facility] CONVERSIONS Dental, Provider, DDS Social History [...] Description 09/06/2025 9:00 AM EST Office Visit [facility] MEDICINE [address] [place] [address] Name, MD Aric [address] [place] [address] documented as of this encounter Visit Diagnoses Not on filedocumented in this encounter Care Teams Certified Athletic Trainer Relationship Specialty Start Date End Date Name, MD Aric [address] [place] [address] PCP - General Family Medicine 06/01/22 documented as of this encounter
== END 2025-08-24 10:13 | disposition home or self-care (01) ==
LOC: HO.HHCL 10:12
PROVIDERS: PCP Internal Medicine Geriatric Medicine; Visit Provider Internal Medicine Geriatric Medicine
DX: Z13.89 Encounter for screening for other disorder (principal)